=== PATIENT | female | born 1960 | race Caucasian/White ===

== ENCOUNTER 2016-04-22 21:09 | Inpatient (IN) ==
[2016-04-22] MEDS ORDERED: ACETAMINOPHEN 325 MG TABLET PO PRN (21:16)
[2016-04-22] MEDS ORDERED: MAGNESIUM HYDROXIDE 30 ML ORAL.SUSP PO PRN (21:16)
[2016-04-22] MEDS ORDERED: CALCIUM CARBONATE 500 MG TAB.CHEW CHEWED PRN (21:16)
[2016-04-22] MEDS ORDERED: DEXTROSE 50% 50 ML VIAL IV PRN (21:16)
[2016-04-22] MEDS ORDERED: DOCUSATE SODIUM 100 MG CAPSULE PO PRN (21:16)
[2016-04-22] MEDS ORDERED: HYDROCODONE/APAP 7.5/325MG TABLET PO PRN (21:29)
--- NOTE | 2016-04-22 21:36 | Internal Med History&Physical ---
Medical - H&P: HPI Patient information: Note initiated : 04/22/16 at 9:33 pm Service Date, if different from initiated Date: [] Patient: Nalini Coto 55 y/o F admitted on for Cough. Chief Complaint: [] History of present illness: Ms. Coto is a 55 year old female History of present illness: Ms. Coto is a 55 year old female presented to [facility] ER this evening complaining of increasing shortness of breath. ER evaluation there showed that she had a room air O2 saturations in the 70s. She was treated withIV steroids and nebulizer treatments, and has improved somewhat, but still has O2 saturations in the 80s on room air. [facility] felt that she should stay for inpatient treatment, as she was not adequately improved to return home, but they do not have any beds. They called and asked to transfer the patient here. the patient reports that she's had increasing shortness of breath for the last several days. She has felt feverish and chilled. Her has had a cold recently. She also has a headache, mainly over her right eye. She did experience dry heaves this morning. She does have a cough productive of yellowish to clear phlegm. Sore throat, significant eye or ear symptoms. She is not had chest pain although she says her chest may be a little tight with her breathing, but she has been having some aching in her back, which she blames on the coughing. She has had increased wheezing. She has home nebulizedbronchodilators, but they have not been helping. She normally wears2- 3 L of oxygen at night with her CPAP, but does not generally require oxygen during the day. She has had some mild diarrhea lately. Otherwise, she is not had abdominal pain or rectal bleeding or dysuria. past medical history: COPD and asthma obstructive sleep apnea, on CPAP and 2-3 L of oxygen at night Depression Type 2 diabetes, generally well controlled Gout, one episode history of MN reportedly several times, with up to 13 stents Morbid obesity for about 20 years. History of tobacco abuse, having just quit last year. Past surgical history includes heart surgery, and surgery for carpal tunnel syndrome and . Current medications: humalog sliding scale with meals [id number] units daily at bedtime nitroglycerin 0.4 mg when necessary Vitamin B12 1000 milligrams every month Methocarbamol 750 mg 3 times a day when necessary Tramadol 50 mg wice a day when necessary Trazodone 50 mg daily at bedtime Pramipexole 1 mg aily at bedtime Sertraline 200 mg daily at bedtime Bumex 1 mg times a day Plavix 75 mg daily Coreg 3.125 mg by mouth twice a day Aspirin 81 mg daily oxygen, 2-3 L at at bedtime CPAP set at 8, daily at bedtime Allergies: Gabapentin Lyrica Lipitor Keflex-- May have caused throat swelling Erythromycin -- causes flushing Wellbutrin Morphine Shrimp Tape family history: Mother has a history of cancer and diabetes. A sibling also has diabetes and renal disease. Social history; History of drug use. patient smoked from the age of 17 until55, and then quit. She does not use drugs or alcohol. She is and lives with her . Medical - H&P: Meds Home Medications Medication Instructions Recorded Confirmed Type Aspirin [Lo-Dose Aspirin EC] 81 mg PO HS 12/10/15 03/05/16 History Bumetanide 4 mg PO QDAY 12/10/15 03/05/16 History Carvedilol [Coreg] 3.125 mg PO BID 12/10/15 03/07/16 History Clopidogrel [Plavix] 75 mg PO DAILY 12/10/15 03/05/16 History Cyanocobalamin (Vitamin B-12) 1,000 mcg IJ MONTHLY 12/10/15 03/05/16 History [B-12 Compliance] Insulin Glargine, Human [Lantus] 50 unit SQ HS 12/10/15 03/05/16 History Insulin Lispro [HumaLOG] 1 unit SQ .COMPLEX 12/10/15 03/05/16 History Methocarbamol [Robaxin-750] 750 mg PO QIDP PRN 12/10/15 03/05/16 History Nitroglycerin [Nitrostat] 0.4 mg SL Q5M PRN 12/10/15 03/05/16 History Pramipexole [Mirapex] 1 mg PO DAILY 12/10/15 03/05/16 History Sertraline [Zoloft] 100 mg PO BID 12/10/15 03/05/16 History traMADol [Ultram] 50 mg PO BID PRN 12/10/15 03/05/16 History traZODone HCL [Trazodone HCl] 50 mg PO DAILY 12/10/15 03/05/16 History Spironolactone [Aldactone] 25 mg PO QDAY 03/05/16 03/05/16 History Allergies Allergy/AdvReac Type Severity Reaction Status Date / Time atorvastatin [From Lipitor] Allergy Severe Muscle Pain Verified 12/10/15 13:22 cephalexin [From Keflex] Allergy Severe Anaphylaxis Verified 12/10/15 13:22 Ensiklp-Lph-Fve Reductase Allergy Severe Muscle Pain Verified 12/10/15 13:22 Inhibitor Erythromycin Base Allergy Intermediate Flushing Verified 12/10/15 13:22 bupropion [From Wellbutrin] AdvReac Severe Confusion Verified 12/10/15 13:22 pregabalin [From Lyrica] AdvReac Severe Confusion Verified 12/10/15 13:22 gabapentin AdvReac Intermediate Gastrointestinal Verified 12/10/15 13:22 Upset morphine AdvReac Intermediate Insomnia Verified 12/10/15 13:22 Medical - H&P: Exam - Constitutional Exam: vital signs: Blood pressure 134/78 heart rate 81, O2 saturation 90% on 5 L mask , temperature 98.2, respiratory rate 32 The patient is a morbidly old obese white female, who is mildly dyspneic but able to speak in complete sentences. Head: Normocephalic, atraumatic. Ears: TMs and canals are clear. Eyes: PERRLA, EOMI, anicteric. Pharynx: Is markedly crowded. Upper jaw is edentulous with just a few teeth noted on the lower jaw. She says she does have a denture at home. Neck: Has a very large circumference. There is no obvious JVD, lymphadenopathy , thyromegaly, bruits. Cardiac exam: Shows regular rate and rhythm, without obvious murmurs, rubs, gallops, although heart sounds are distant. Lung exam:Shows diffuseand loud expiratory wheezing throughout all lung schaefer. There is some sensory muscle use.I:E ratio is prolonged at 1:3. Abdomen: Is markedly protuberant, but soft and nontender. Bowel sounds are active. Extremities: Show minimal edema, and no cyanosis or clubbing. Neurologic exam: Patient is alert and oriented, calm and cooperative. Motor exam is grossly nonfocal. Skin exam: Brief exam did not show any rashes or worrisome skin lesions. Medical - H&P: Reslt - Labs Labs: results from [facility] emergency room:Weight is 248 pounds, with a BMI of 48 Patient has not received a flu shot this yearand she cannot recall her last Pneumovax--[facility] record indicates this was given in July 2012.. CBC shows a white blood cell count of 5000 hemoglobin 15, hematocrit 47, platelets 182,000, absolute granulocyte count is 4000, lymphocyte count is 800 which is low venous blood gas shows a pH of 7.37, PCO2 of 55, PO2 of 39, bicarbonate of 31 O2 saturation of 67% PO2 of 39 Chemistry panel shows sodium 138, potassium 3.6, chloride 94, CO2 29 calcium 8.6 , albumin 3.9 LFTs are essentially normal Lactic acid is normal at 1.5 Influenza A and B screens are negative I do not see an EKG or chest x-ray report and the paperwork sent from [facility]. I also do not see screening troponin, BNP, or d-dimer. Medical - H&P: A/P - Narrative A/P Narrative: Medical - H&P: A/P (1) COPD with exacerbation Status: Acute (2) Asthma exacerbation in COPD Status: Acute (3) CHF (congestive heart failure) Status: Acute (4) HTN (hypertension) Status: Acute (5) DM type 2 (diabetes mellitus, type 2) Status: Acute (6) STEVEN (obstructive sleep apnea) Status: Acute (7) Gout Status: Acute (8) CAD (coronary artery disease) Status: Acute - Narrative A/P Narrative: #1. Pulmonary. this patient presents with hypoxia, and apparent COPD exacerbation, likely due to a superimposed viral infection.. She will be admitted for aggressive management with nebulized bronchodilators, IV steroids, oxygen and pulmonary toilet. There is no current sign of pneumonia (the ER M.D. he reported a negative chest x-ray). -check screening troponin, BNP, d-dimer. #2. Type 2 diabetes. Continue Lantus and Humalog sliding scale, and Accu-Cheks. #3. Cardiac. reported history of previous MN, and numerous stents.. -Continue Plavix, aspirin, when necessary nitroglycerin. review EKG when available. -Continue Aldactone, when necessary nitroglycerin, Coreg, and Bumex.. #4. CODE STATUS:full code. #5. DVT prophylaxis: continue Plavix and aspirin, add SCDs. #6.sleep apnea. the patient's will try to bring in her CPAP machine so we can resume that at bedtime. #7. History of depression. ontinue trazodone, Zoloft. #8. Chronic pain. Continue when necessary tramadol and [place].and when necessary methocarbamol. #9. Restless leg syndrome. Continue Mirapex. #10. B12 deficiency. Continue monthly B12 injections. this visit took [id number] minutes, to review the patient's records both from here and from [facility], interview and examine her, and write orders.
[2016-04-22] MEDS ORDERED: CARVEDILOL 3.125 MG TABLET PO ONE (23:25)
[2016-04-22] MEDS ORDERED: INSULIN GLARGINE, HUMAN 1 UNIT/0.01 ML SQ ONE ×2 (23:27→23:55)
[2016-04-22] MEDS ORDERED: PRAMIPEXOLE 1 MG TABLET PO ONE (23:27)
[2016-04-22] MEDS: traZODone HCL 50 MG TABLET PO PRN (23:45)
[2016-04-22] MEDS: traMADol 50 MG TABLET PO PRN (23:45)
[2016-04-22] MEDS: ONDANSETRON ODT 4 MG TABLET SL PRN (23:45)
[2016-04-22] MEDS: methylPREDNISolone SOD SUCC 125 MG/2 ML VIAL IV SCH (23:46)
[2016-04-22] MEDS: 0.9 % SODIUM CHLORIDE 10 ML SYRINGE IV SCH (23:46)
[2016-04-22] MEDS ORDERED: CARVEDILOL 6.25 MG TABLET ONE (23:51)
[2016-04-23] MEDS: IPRATROPIUM/ALBUTEROL 3 ML AMPUL.NEB NEB SCH ×4 (02:26→19:03)
[2016-04-23] MEDS: methylPREDNISolone SOD SUCC 125 MG/2 ML VIAL IV SCH ×3 (05:08→21:00)
[2016-04-23] MEDS: 0.9 % SODIUM CHLORIDE 10 ML SYRINGE IV SCH ×3 (05:09→21:00)
[2016-04-23 06:52] LABS: Basophils # (Auto) 0 K/mcL (0.0-0.3); Basophils % (Auto) 0.1 % (0.0-2.0); Eosinophils # (Auto) 0 K/mcL (0.0-0.7); Eosinophils % (Auto) 0.8 % (0.0-7.0); Lymphocytes # (Auto) 0.5 K/mcL (1.5-4.8); Lymphocytes % (Auto) 10.7 % (15.5-49.0); Mean Cell Volume 94.6 fL (80.0-100.0); Mean Corpuscular HGB Conc 31.9 g/dL (31.0-36.0); Mean Corpuscular Hemoglobin 30.2 pg (26.0-34.0); Monocytes # (Auto) 0.1 K/mcL (0.1-0.9); Monocytes % (Auto) 2.4 % (1.0-9.0); Platelet Count 160 K/mcL (140-440); RBC 4.94 M/mcL (4.00-5.20); Red Cell Distribution Width 15.4 % (11.5-14.5)
[2016-04-23 07:02] LABS: ALT/SGPT 26 U/l (0-40); Albumin 3.7 gm/dL (3.2-5.2); Albumin/Globulin Ratio 1.1 (1.0-2.3); Alkaline Phosphatase 74 U/L (39-117); Blood Urea Nitrogen 13 mg/dl (6-20)
[2016-04-23] MEDS: INSULIN LISPRO 1 UNIT/0.01 ML UNIT SQ SCH ×3 (07:16→17:15)
[2016-04-23] MEDS: ONDANSETRON ODT 4 MG TABLET SL PRN ×2 (07:51→18:22)
[2016-04-23] MEDS ORDERED: CARVEDILOL 3.125 MG TABLET PO SCH (08:00)
[2016-04-23] MEDS ORDERED: FLU VACC QS2016-17 36MOS UP/PF 60 MCG/0.5 ML SYRINGE IM ONE (09:00)
[2016-04-23] MEDS: ASPIRIN 81 MG TAB.CHEW CHEWED SCH (09:36)
[2016-04-23] MEDS: CLOPIDOGREL 75 MG TABLET PO SCH (09:36)
[2016-04-23] MEDS ORDERED: NITROGLYCERIN 0.4 MG TAB.SUBL SL PRN (09:43)
--- NOTE | 2016-04-23 09:57 | Internal Med Progress Note ---
Medical - PN: Subj Patient information: Note initiated : 04/23/16 at 9:57 am Service Date, if different from initiated Date: [] Patient: Nalini Coto 55 y/o F admitted on 04/22/16 for Cough. Chief Complaint: [] Interval history: April 22, 2016:History of present illness: Ms. Coto is a 55 year old female presented to [facility] ER this evening complaining of increasing shortness of breath. ER evaluation there showed that she had a room air O2 saturations in the 70s. She was treated withIV steroids and nebulizer treatments, and has improved somewhat, but still has O2 saturations in the 80s on room air. [facility] felt that she should stay for inpatient treatment, as she was not adequately improved to return home, but they do not have any beds. They called and asked to transfer the patient here. the patient reports that she's had increasing shortness of breath for the last several days. She has felt feverish and chilled. Her has had a cold recently. She also has a headache, mainly over her right eye. She did experience dry heaves this morning. She does have a cough productive of yellowish to clear phlegm. Sore throat, significant eye or ear symptoms. She is not had chest pain although she says her chest may be a little tight with her breathing, but she has been having some aching in her back, which she blames on the coughing. She has had increased wheezing. She has home nebulizedbronchodilators, but they have not been helping. She normally wears2- 3 L of oxygen at night with her CPAP, but does not generally require oxygen during the day. She has had some mild diarrhea lately. Otherwise, she is not had abdominal pain or rectal bleeding or dysuria. april 23, 2016: Today, the patientnotes she is still having a fair amount of wheezing and shortness of breath, but think she is much improved since last night. he is not noticing subjective fever or chills this morning. She is still having some nausea, but no vomiting. she otherwise denies current headache sore throat She does continue to have a cough which is mostly nonproductive. She denies abdominal pain or diarrhea or dysuria. her did bring in her nasal CPAP last night, so she still has that on. O2 saturation at 4 this morning was 88%on 5 L O2 via nasal cannula, and went up to 90% on 5 L with her nasal CPAP - Constitutional Vitals: Vital Signs Temp Pulse Resp BP Pulse Ox 97.6 F 76 16 110/64 93 04/23/16 07:20 04/23/16 07:22 04/23/16 07:22 04/23/16 07:20 04/23/16 07:22 Period Temp Pulse Resp BP Sys/Rodriguez Pulse Ox Last 24 Hr 97.6 F-98.5 F 69-96 16-32 110-134/64-80 88-93 Intake and Output 04/22/16 04/23/16 04/23/16 21:59 05:59 13:59 Intake Total 480 / 480 360 / 360 Output Total 300 / 300 Balance 180 / 180 360 / 360 Weight 243 lb 11.2 oz Intake & Output: Intake & Output 04/22/16 04/23/16 04/23/16 21:59 05:59 13:59 Intake Total 480 / 480 360 / 360 Output Total 300 / 300 Balance 180 / 180 360 / 360 Weight 243 lb 11.2 oz Intake: Oral 480 / 480 360 / 360 Output: Void Amount 300 / 300 Other: Meal Breakfast Percent of Meal Consumed 100% Feeding Ability Independent Exam: on exam, she is lying on her side with her CPAP on. She is awake and alert and oriented. Neck shows no obvious JVD. Cardiac exam shows distant heart sounds, with regular rate and rhythm. Lungs:Still showed diffuse soft wheezes, but certainly much softer than last night, and she seems to have better air movement today. Abdomen is obese and protuberant, but otherwise nontender. Extremities: Show just a trace edema. Medical - PN: Obj Da - Labs CBC & Chem 7: 04/23/16 05:02 04/23/16 05:02 Labs: Abnormal Lab Results 04/23/16 04/23/16 04/22/16 05:02 05:02 22:55 RDW 15.4 H Gran % 86.0 H Lymph % (Auto) 10.7 L Lymph # 0.5 L D-Dimer Chloride 93 L Glucose 229 H NT-Pro-B Natriuret Pep 2636.0 H 04/22/16 22:55 RDW Gran % Lymph % (Auto) Lymph # D-Dimer 0.47 H Chloride Glucose NT-Pro-B Natriuret Pep april 22, 2016: d-dimer is mildly elevated at 0.47. troponin is normal at less than 0.01. BNP is elevated at 2636 results from [facility] emergency room:Weight is 248 pounds, with a BMI of 48 Patient has not received a flu shot this yearand she cannot recall her last Pneumovax--[facility] record indicates this was given in July 2012.. CBC shows a white blood cell count of 5000 hemoglobin 15, hematocrit 47, platelets 182,000, absolute granulocyte count is 4000, lymphocyte count is 800 which is low venous blood gas shows a pH of 7.37, PCO2 of 55, PO2 of 39, bicarbonate of 31 O2 saturation of 67% PO2 of 39 Chemistry panel shows sodium 138, potassium 3.6, chloride 94, CO2 29 calcium 8.6 , albumin 3.9 LFTs are essentially normal Lactic acid is normal at 1.5 Influenza A and B screens are negative Meds: Medications Acetaminophen (Tylenol) 650 mg PO Q6HP PRN PRN Reason: PAIN/FEVER > 101 Acetaminophen/Hydrocodone Bitart ([place] 7.5/325mg) 1 tab PO Q4HP PRN PRN Reason: Pain Albuterol Sulfate (Ventolin) 2.5 mg NEB Q2HP PRN PRN Reason: Shortness Of Breath Albuterol/Ipratropium (Duoneb) 3 ml NEB Q6HRT [facility] Last Admin: 04/23/16 06:55 Dose: 3 ml Aspirin (Aspirin) 81 mg CHEWED DAILY [facility] Last Admin: 04/23/16 09:36 Dose: 81 mg Bumetanide (Bumex) 1 mg PO QIDP [facility] Calcium Carbonate/Glycine (Tums) 1,000 mg CHEWED Q4HP PRN PRN Reason: Dyspepsia Carvedilol (Coreg) 3.125 mg PO BIDCC [facility] Last Admin: 04/23/16 07:51 Dose: 3.125 mg Clopidogrel Bisulfate (Plavix) 75 mg PO DAILY [facility] Last Admin: 04/23/16 09:36 Dose: 75 mg Dextrose (Dextrose 50%) 0 ml IV UD PRN PRN Reason: Hypoglycemia Diagnostic Test (Pha) (Accu-Chek) 1 each FS ACHS [facility] Last Admin: 04/23/16 07:16 Dose: 1 each Docusate Sodium (Colace) 100 mg PO BID PRN PRN Reason: Constipation Insulin Human Lispro (Humalog) 0 unit SQ ACHS [facility] PRN Reason: Protocol Last Admin: 04/23/16 07:16 Dose: 4 unit Magnesium Hydroxide (Milk Of Magnesia) 30 ml PO DAILYP PRN PRN Reason: Constipation Methocarbamol (Robaxin (Pp)) 750 mg PO Q6 PRN PRN Reason: Muscle Pain Methylprednisolone Sodium Succinate (Solu-Medrol) 80 mg IV Q8 [facility] Last Admin: 04/23/16 05:08 Dose: 80 mg Nitroglycerin (Nitrostat) 0.4 mg SL Q5M PRN PRN Reason: Chest Pain Non-Formulary Medication (Cyanocobalamin (Vitamin B-12) [B-12 Compliance]) 1, 000 mcg IJ MONTHLY [facility] Ondansetron HCl (Zofran) 4 mg SL Q6HP PRN PRN Reason: Nausea And Vomiting Last Admin: 04/23/16 07:51 Dose: 4 mg Pneumococcal Polyvalent Vaccine (Pneumovax 23) 0.5 ml IM .ONCE ONE Stop: 04/23/16 10:01 Pramipexole Dihydrochloride (Mirapex) 1 mg PO DAILY [facility] Sertraline HCl (Zoloft) 200 mg PO QHS [facility] Sodium Chloride (Saline Flush) 10 ml IV Q8 [facility] Last Admin: 04/23/16 05:09 Dose: 10 ml Tramadol HCl (Ultram) 50 mg PO BIDP PRN PRN Reason: Pain Last Admin: 04/22/16 23:45 Dose: 50 mg Trazodone HCl (Desyrel) 50 mg PO HSP PRN PRN Reason: Insomnia Last Admin: 04/22/16 23:45 Dose: 50 mg Medical - PN: A/P - Time Spent With Patient Total time spent is greater than 50% in coordination of care (as documented) at patient's floor/unit and/or counseling patient: - Narrative A/P Narrative: #1. Pulmonary. this patient presents with hypoxia, and apparent COPD exacerbation, likely due to a superimposed viral infection.. She will be admitted for aggressive management with nebulized bronchodilators, IV steroids, oxygen and pulmonary toilet. There is no current sign of pneumonia (the ER M.D. he reported a negative chest x-ray). -the patient does have an abnormal BNP and d-dimer but clinically is improving with treatment for COPD exacerbation, so I think we will continue with the same. I will check a follow-up chest x-ray today. -I will also request records from her primary care physician and architectural drafting instructor to see about her history of coronary disease and possible congestive heart failure. #2. Type 2 diabetes. - Continue Lantus and Humalog sliding scale, and Accu-Cheks. glucose is running a bit high, likely related to acute illness and steroids. #3. Cardiac. reported history of previous TN, and numerous stents.. -Continue Plavix, aspirin, when necessary nitroglycerin. review EKG when available. -Continue Aldactone, when necessary nitroglycerin, Coreg, and Bumex.. -patient has a pacemaker/defibrillator in place. Report from Dr. Self's office from October 2015 did shownonsustained V. tach of about 9 seconds back in May. EKG showed old inferior and anterolateral TN. #4. CODE STATUS:full code. #5. DVT prophylaxis: continue Plavix and aspirin, add SCDs. #6.sleep apnea. continue nighttime nasal CPAP with supplemental oxygen. #7. History of depression. -Continue trazodone, Zoloft. #8. Chronic pain. Continue when necessary tramadol and [place].and when necessary methocarbamol. #9. Restless leg syndrome. Continue Mirapex. #10. B12 deficiency. Continue monthly B12 injections. approximately 25 minutes has been spent so far today, reviewing test results, interviewing and examining the patient, and writing orders. I will also try to review old records later today. Medical - PN: Qual - Stroke Symptom Onset Unknown: No - VTE Deep Vein Thrombosis/Pulmonary Embolism Present on Admission: No
[2016-04-23] MEDS ORDERED: PNEUMOCOCCAL 23-VAL P-SAC VAC 0.5 ML VIAL IM ONE (10:00)
[2016-04-23] MEDS ORDERED: METHOCARBAMOL 750 MG TABLET PO PRN (10:10)
[2016-04-23] MEDS: BUMETANIDE 1 MG TABLET PO SCH (11:30)
--- NOTE | 2016-04-23 12:04 | XRay Report ---
CLINICAL INFORMATION: Wheezing. Hypoxia. Coronary artery disease. TECHNIQUE: Upright PA and lateral chest x-ray COMPARISON: Previous chest x-rays dated 08/17/2011, 01/25/2009, 01/23/2009 FINDINGS: Interval placement of left transvenous pacemaker with lead in appropriate position for right ventricle. Elevated right diaphragm hemidiaphragm consistent with eventration. Findings are stable. There is cardiomegaly. Pulmonary vascularity is prominent with upper lobe redistribution. Findings are consistent with pulmonary congestion. No pulmonary edema. No focal pulmonary parenchymal infiltrate or mass. No pleural fluid. IMPRESSION: 1. Mild cardiomegaly. 2. Prominent vascularity consistent with pulmonary congestion. 3. No pulmonary edema. No focal pulmonary parenchymal infiltrate. Interpreted and Authenticated by: Jose M Dixon 04/23/16
[2016-04-23] MEDS: CARVEDILOL 3.125 MG TABLET PO SCH (21:00)
[2016-04-23] MEDS ORDERED: SERTRALINE 50 MG TABLET PO SCH (21:00)
[2016-04-23] MEDS: traMADol 50 MG TABLET PO PRN (21:28)
[2016-04-23] MEDS: traZODone HCL 50 MG TABLET PO PRN (21:29)
[2016-04-23] MEDS ORDERED: INSULIN GLARGINE, HUMAN 1 UNIT/0.01 ML SQ ONE (22:20)
[2016-04-24] MEDS: BUMETANIDE 1 MG TABLET PO SCH ×3 (00:31→21:55)
[2016-04-24] MEDS: IPRATROPIUM/ALBUTEROL 3 ML AMPUL.NEB NEB SCH ×4 (00:55→19:45)
[2016-04-24] MEDS: INSULIN LISPRO 1 UNIT/0.01 ML UNIT SQ SCH ×5 (00:55→21:37)
[2016-04-24] MEDS: methylPREDNISolone SOD SUCC 125 MG/2 ML VIAL IV SCH ×3 (06:34→21:55)
[2016-04-24] MEDS: 0.9 % SODIUM CHLORIDE 10 ML SYRINGE IV SCH ×3 (06:34→22:00)
[2016-04-24 07:04] LABS: Basophils # (Auto) 0 K/mcL (0.0-0.3); Basophils % (Auto) 0.2 % (0.0-2.0); Eosinophils # (Auto) 0 K/mcL (0.0-0.7); Eosinophils % (Auto) 0 % (0.0-7.0); Lymphocytes # (Auto) 0.4 K/mcL (1.5-4.8); Lymphocytes % (Auto) 5.2 % (15.5-49.0); Mean Cell Volume 96.7 fL (80.0-100.0); Mean Corpuscular HGB Conc 31.6 g/dL (31.0-36.0); Mean Corpuscular Hemoglobin 30.6 pg (26.0-34.0); Monocytes # (Auto) 0.4 K/mcL (0.1-0.9); Monocytes % (Auto) 4.6 % (1.0-9.0); Platelet Count 182 K/mcL (140-440); RBC 4.85 M/mcL (4.00-5.20); Red Cell Distribution Width 15.7 % (11.5-14.5)
[2016-04-24 07:41] LABS: ALT/SGPT 39 U/l (0-40); Albumin 4.1 gm/dL (3.2-5.2); Albumin/Globulin Ratio 1.4 (1.0-2.3); Alkaline Phosphatase 73 U/L (39-117); Blood Urea Nitrogen 21 mg/dl (6-20)
[2016-04-24] MEDS: CLOPIDOGREL 75 MG TABLET PO SCH (08:59)
[2016-04-24] MEDS: CARVEDILOL 3.125 MG TABLET PO SCH (08:59)
[2016-04-24] MEDS: ASPIRIN 81 MG TAB.CHEW CHEWED SCH (08:59)
[2016-04-24] MEDS ORDERED: NON FORMULARY MEDICATION 1 DOSE MISCELL (Cyanocobalamin (Vitamin B-12) [B-12 Compliance] 1 IJ SCH (09:00)
[2016-04-24] MEDS ORDERED: PRAMIPEXOLE 0.25 MG TABLET PO SCH ×2 (09:00→21:00)
[2016-04-24] MEDS: ONDANSETRON ODT 4 MG TABLET SL PRN (09:23)
[2016-04-24] MEDS: ALBUTEROL SULFATE 2.5 MG/3 ML NEBULIZER NEB PRN ×2 (09:36→16:43)
--- NOTE | 2016-04-24 11:05 | Internal Med Progress Note ---
Medical - PN: Subj Patient information: Note initiated : 04/24/16 at 11:05 am Service Date, if different from initiated Date: [] Patient: Nalini Coto 55 y/o F admitted on 04/22/16 for Cough/SOB, Hypoxia, COPD Exacerbation. Chief Complaint: [] Interval history: April 22, 2016:History of present illness: Ms. Coto is a 55 year old female presented to [facility] ER this evening complaining of increasing shortness of breath. ER evaluation there showed that she had a room air O2 saturations in the 70s. She was treated withIV steroids and nebulizer treatments, and has improved somewhat, but still has O2 saturations in the 80s on room air. [facility] felt that she should stay for inpatient treatment, as she was not adequately improved to return home, but they do not have any beds. They called and asked to transfer the patient here. the patient reports that she's had increasing shortness of breath for the last several days. She has felt feverish and chilled. Her has had a cold recently. She also has a headache, mainly over her right eye. She did experience dry heaves this morning. She does have a cough productive of yellowish to clear phlegm. Sore throat, significant eye or ear symptoms. She is not had chest pain although she says her chest may be a little tight with her breathing, but she has been having some aching in her back, which she blames on the coughing. She has had increased wheezing. She has home nebulizedbronchodilators, but they have not been helping. She normally wears2- 3 L of oxygen at night with her CPAP, but does not generally require oxygen during the day. She has had some mild diarrhea lately. Otherwise, she is not had abdominal pain or rectal bleeding or dysuria. april 23, 2016: Today, the patientnotes she is still having a fair amount of wheezing and shortness of breath, but think she is much improved since last night. he is not noticing subjective fever or chills this morning. She is still having some nausea, but no vomiting. she otherwise denies current headache sore throat She does continue to have a cough which is mostly nonproductive. She denies abdominal pain or diarrhea or dysuria. her did bring in her nasal CPAP last night, so she still has that on. O2 saturation at 4 this morning was 88%on 5 L O2 via nasal cannula, and went up to 90% on 5 L with her nasal CPAP April 24, 2016: today, the patient says she is not feeling that great. She and her know that if she gets out of bed and walks around all she desaturates. Normally at home she stays above 90% on room air during the daybut is desaturating even on 2 and 3 L of oxygen here. She says she just feels poorly, although her main complaints are that she has a pain above her right eye and some dizziness She is not experiencing fever or chills or significant cough She continues to feel moderately short of breath, but is not having as much wheezing. She denies chest pain or palpitations, abdominal pain , vomiting or diarrhea. She does continue to have some intermittent nausea. She denies dysuria. - Constitutional Vitals: Vital Signs Temp Pulse Resp BP Pulse Ox 96.6 F L 62 11 L 119/69 95 04/24/16 06:45 04/24/16 09:38 04/24/16 09:38 04/24/16 06:45 04/24/16 09:42 Period Temp Pulse Resp BP Sys/Rodriguez Pulse Ox Last 24 Hr 96.5 F-98.1 F 62-80 11-32 110-131/58-74 88-96 Intake and Output 04/23/16 04/24/16 04/24/16 21:59 05:59 13:59 Intake Total 540 / 540 715 / 715 Output Total 1601 / 1601 550 / 550 800 / 800 Balance -1061 / -1061 165 / 165 -800 / -800 Weight 244 lb 3.2 oz Intake & Output: Intake & Output 04/23/16 04/24/16 04/24/16 21:59 05:59 13:59 Intake Total 540 / 540 715 / 715 Output Total 1601 / 1601 550 / 550 800 / 800 Balance -1061 / -1061 165 / 165 -800 / -800 Weight 244 lb 3.2 oz Intake: Oral 540 / 540 715 / 715 Output: Void Amount 1600 / 1600 550 / 550 800 / 800 # of times incontinent of 1 / 1 urine Other: Meal Dinner Percent of Meal Consumed 100% Feeding Ability Independent Exam: On exam, she is lying on her side, and seems rather sleepy. She also seems a bit irritable. She does have her nasal CPAP in place. neck shows no obvious JVD. Cardiac exam shows regular rate and rhythm, but heart sounds are distant. Lungs: Much improved breath sounds, and minimal wheezing today. Abdomen:Is obese, but soft and nontender. Extremities: Show no significant edema. Medical - PN: Obj Da - Labs CBC & Chem 7: 04/24/16 05:20 04/24/16 05:20 Labs: Abnormal Lab Results 04/24/16 04/24/16 04/23/16 05:20 05:20 05:02 RDW 15.7 H 15.4 H Gran % 90.0 H 86.0 H Lymph % (Auto) 5.2 L 10.7 L Lymph # 0.4 L 0.5 L D-Dimer Chloride 94 L Carbon Dioxide 31 H BUN 21 H Glucose 188 H Calcium 8.5 L AST 43 H NT-Pro-B Natriuret Pep 04/23/16 04/22/16 04/22/16 05:02 22:55 22:55 RDW Gran % Lymph % (Auto) Lymph # D-Dimer 0.47 H Chloride 93 L Carbon Dioxide BUN Glucose 229 H Calcium AST NT-Pro-B Natriuret Pep 2636.0 H April 24: 02 saturations are ranging from 88-95% on 5 L O2, both with and without CPAP. April 23:Chest x-ray showed interval placement of left transvenous pacemaker, elevated right hemidiaphragm, cardiomegaly, prominent pulmonaryvasculature with upper lobe redistribution. No pulmonary infiltrates. april 22, 2016: d-dimer is mildly elevated at 0.47. troponin is normal at less than 0.01. BNP is elevated at 2636 results from [facility] emergency room:Weight is 248 pounds, with a BMI of 48 Patient has not received a flu shot this year and she cannot recall her last Pneumovax--[place]'s record indicates this was given in July 2012.. CBC shows a white blood cell count of 5000 hemoglobin 15, hematocrit 47, platelets 182,000, absolute granulocyte count is 4000, lymphocyte count is 800 which is low venous blood gas shows a pH of 7.37, PCO2 of 55, PO2 of 39, bicarbonate of 31 O2 saturation of 67% PO2 of 39 Chemistry panel shows sodium 138, potassium 3.6, chloride 94, CO2 29 calcium 8.6 , albumin 3.9 LFTs are essentially normal Lactic acid is normal at 1.5 Influenza A and B screens are negative echocardiogram from December 2014: Showed AICD placement, ejection fraction 34%, . stents 2 in the LAD,stents 2 in the LAD and obtuse marginal Meds: Medications Acetaminophen (Tylenol) 650 mg PO Q6HP PRN PRN Reason: PAIN/FEVER > 101 Last Admin: 04/23/16 21:50 Dose: 650 mg Acetaminophen/Hydrocodone Bitart ([place] 7.5/325mg) 1 tab PO Q4HP PRN PRN Reason: Pain Albuterol Sulfate (Ventolin) 2.5 mg NEB Q2HP PRN PRN Reason: Shortness Of Breath Last Admin: 04/24/16 09:36 Dose: 2.5 mg Albuterol/Ipratropium (Duoneb) 3 ml NEB Q6HRT [facility] Last Admin: 04/24/16 06:52 Dose: 3 ml Aspirin (Aspirin) 81 mg CHEWED DAILY [facility] Last Admin: 04/24/16 08:59 Dose: 81 mg Bumetanide (Bumex) 2 mg PO BID [facility] Last Admin: 04/24/16 08:59 Dose: 2 mg Calcium Carbonate/Glycine (Tums) 1,000 mg CHEWED Q4HP PRN PRN Reason: Dyspepsia Carvedilol (Coreg) 3.125 mg PO BID [facility] Last Admin: 04/24/16 08:59 Dose: 3.125 mg Clopidogrel Bisulfate (Plavix) 75 mg PO DAILY [facility] Last Admin: 04/24/16 08:59 Dose: 75 mg Dextrose (Dextrose 50%) 0 ml IV UD PRN PRN Reason: Hypoglycemia Diagnostic Test (Pha) (Accu-Chek) 1 each FS ACHS [facility] Last Admin: 04/24/16 07:02 Dose: 1 each Docusate Sodium (Colace) 100 mg PO BID PRN PRN Reason: Constipation Insulin Glargine (Lantus) 50 unit SQ HS [facility] Last Admin: 04/23/16 22:12 Dose: 50 unit Insulin Human Lispro (Humalog) 0 unit SQ ACHS [facility] PRN Reason: Protocol Last Admin: 04/24/16 07:04 Dose: 4 unit Magnesium Hydroxide (Milk Of Magnesia) 30 ml PO DAILYP PRN PRN Reason: Constipation Methocarbamol (Robaxin) 750 mg PO Q6HP PRN PRN Reason: Muscle Pain Methylprednisolone Sodium Succinate (Solu-Medrol) 80 mg IV Q8 [facility] Last Admin: 04/24/16 06:34 Dose: 80 mg Nitroglycerin (Nitrostat) 0.4 mg SL Q5M PRN PRN Reason: Chest Pain Ondansetron HCl (Zofran) 4 mg SL Q6HP PRN PRN Reason: Nausea And Vomiting Last Admin: 04/24/16 09:23 Dose: 4 mg Pramipexole Dihydrochloride (Mirapex) 1 mg PO DAILY [facility] Last Admin: 04/23/16 22:00 Dose: 1 mg Sertraline HCl (Zoloft) 200 mg PO HS [facility] Last Admin: 04/23/16 21:00 Dose: 200 mg Sodium Chloride (Saline Flush) 10 ml IV Q8 [facility] Last Admin: 04/24/16 06:34 Dose: 10 ml Tramadol HCl (Ultram) 50 mg PO BIDP PRN PRN Reason: Pain Last Admin: 04/23/16 21:28 Dose: 50 mg Trazodone HCl (Desyrel) 50 mg PO HSP PRN PRN Reason: Insomnia Last Admin: 04/23/16 21:29 Dose: 50 mg Medical - PN: A/P - Time Spent With Patient Total time spent is greater than 50% in coordination of care (as documented) at patient's floor/unit and/or counseling patient: - Narrative A/P Narrative: #1. Pulmonary. this patient presents with hypoxia, and apparent COPD exacerbation, likely due to a superimposed viral infection.. She will be admitted for aggressive management with nebulized bronchodilators, IV steroids, oxygen and pulmonary toilet. There is no current sign of pneumonia (the ER M.D. he reported a negative chest x-ray). -the patient does have an abnormal BNP and d-dimer but clinically Patient seemed to improve initially with COPD treatment. Today she looks less well, so I may try diuresing her a bit to see if that is helpful. if not, I might consider a CT angiogram to rule out underlying PE. #2. Type 2 diabetes. - Continue Lantus and Humalog sliding scale, and Accu-Cheks. glucose is running a bit high, likely related to acute illness and steroids. #3. Cardiac. reported history of previous DE, and numerous stents.. -Continue Plavix, aspirin, when necessary nitroglycerin. review EKG when available. -Continue Aldactone, when necessary nitroglycerin, Coreg, and Bumex.. -patient has a pacemaker/defibrillator in place. Report from Dr. Self's office from October 2015 did show nonsustained V. tach of about 9 seconds back in May. EKG showed old inferior and anterolateral DE. #4. CODE STATUS:full code. #5. DVT prophylaxis: continue Plavix and aspirin, add SCDs. #6.sleep apnea. continue nighttime nasal CPAP with supplemental oxygen. #7. History of depression. -Continue trazodone, Zoloft. #8. Chronic pain. Continue when necessary tramadol and [place].and when necessary methocarbamol. #9. Restless leg syndrome. Continue Mirapex. #10. B12 deficiency. Continue monthly B12 injections. #11. Hematologic. Patient also is lymphopenic.absolute lymphocyte count was 1500 last November, and has been declining steadily since then. if this trend does not improve, it might be worthwhile doing an HIV screen. this could also just be evidence of recurrent respiratory virus infection as well. So far today, this is his second approximately 30 minutes, to interview and examine the patient, review test results, review her previous echo, and write orders. addendum: this evening, the patient became progressively more dyspneic, and her O2 saturations started to drop down into the 60s. Her FiO2 was increased, and this helped temporarily. The patient was complaining mainly of sinus congestion and nasal congestion as well as pain above her right eye. She was continuing to try to use the nasal CPAP, but was doing a lot of mouth breathing. I ultimately decided to move her to the intensive care unit for further monitoring. Since we were concerned about the possibility of congestive heart failure earlier today, she was given IV Lasix, with a good response to that. ABG indicated continued CO2 retention and hypoxemia Because of her sinus issues , we stopped her nasal CPAP, and switch her over to BiPAP. Since then, she has been doing quite well. Her O2 requirements have dropped dramatically, and she has appeared to be quite a bit more comfortable. because of a likely sinus infection, I will add antibiotics as well. ABG on her nasal CPAP at 10 L: Showed pH of 7.42, PCO2 of 67, PO2 of 54, O2 saturation of 88%, bicarbonate of 43 EKG showed sinus rhythm at a rate of 80 with old inferior and lateral infarcts. Without obvious acute ischemic changes. follow-up chest x-rayshows no pulmonary edema or infiltrates. troponin is negative at less than 0.01. BNP is abnormal at 2098 This extra visit took approximately an additional 30 minutes this evening, to evaluate her, and visit with her several times while we sorted things out. Medical - PN: Qual - Stroke Symptom Onset Unknown: No - VTE Deep Vein Thrombosis/Pulmonary Embolism Present on Admission: No
[2016-04-24] MEDS ORDERED: FUROSEMIDE 100 MG/10 ML VIAL IV ONE (12:26)
[2016-04-24] MEDS ORDERED: METHOCARBAMOL 750 MG TABLET PO PRN (18:47)
[2016-04-24] MEDS ORDERED: MAGNESIUM HYDROXIDE 30 ML ORAL.SUSP PO PRN (18:47)
[2016-04-24] MEDS ORDERED: CALCIUM CARBONATE 500 MG TAB.CHEW CHEWED PRN (18:47)
[2016-04-24] MEDS ORDERED: DOCUSATE SODIUM 100 MG CAPSULE PO PRN (18:47)
[2016-04-24] MEDS ORDERED: ALBUTEROL SULFATE 2.5 MG/3 ML NEBULIZER NEB PRN (18:47)
[2016-04-24] MEDS ORDERED: ONDANSETRON ODT 4 MG TABLET SL PRN (18:47)
[2016-04-24] MEDS ORDERED: ACETAMINOPHEN 325 MG TABLET PO PRN (18:47)
[2016-04-24] MEDS ORDERED: DEXTROSE 50% 50 ML VIAL IV PRN (18:47)
[2016-04-24] MEDS ORDERED: HYDROCODONE/APAP 7.5/325MG TABLET PO PRN (18:47)
[2016-04-24] MEDS ORDERED: NITROGLYCERIN 0.4 MG TAB.SUBL SL PRN (18:47)
[2016-04-24] MEDS ORDERED: NITROGLYCERIN 1 GM OINT.TOP TD ONE (18:47)
--- NOTE | 2016-04-24 19:28 | XRay Report ---
CLINICAL INFORMATION: Hypoxia TECHNIQUE: AP upright portable chest x-ray COMPARISON: Previous chest x-rays dated 04/23/2016 and 08/17/2011 FINDINGS: No change in left transvenous pacemaker lead. Persistent elevation right hemidiaphragm There is cardiomegaly. Pulmonary vascularity is within normal limits. No pulmonary edema. No focal pulmonary parenchymal infiltrate or mass. No significant interval change in velocities are made for differences in technique. IMPRESSION: 1. Cardiomegaly. 2. No acute or focal parenchymal infiltrate. No congestive heart failure. Interpreted and Authenticated by: Jose M Dixon 04/24/16
[2016-04-24] MEDS ORDERED: INSULIN GLARGINE, HUMAN 1 UNIT/0.01 ML SQ SCH (21:00)
[2016-04-24] MEDS: INSULIN GLARGINE, HUMAN 1 UNIT/0.01 ML SQ SCH (21:37)
[2016-04-24] MEDS: SERTRALINE 50 MG TABLET PO SCH (21:53)
[2016-04-24] MEDS ORDERED: PIPERACILLIN SODIUM/TAZOBACTAM 3.375 GM VIAL IV ONE (21:56)
[2016-04-24] MEDS: PIPERACILLIN SODIUM/TAZOBACTAM 3.375 GM in DEXTROSE 5% IN WATER 50 ML IV SCH (21:56)
[2016-04-24] MEDS: PRAMIPEXOLE 0.25 MG TABLET PO SCH (21:57)
[2016-04-24] MEDS: traMADol 50 MG TABLET PO PRN (22:21)
[2016-04-24] MEDS: traZODone HCL 50 MG TABLET PO PRN (22:21)
[2016-04-25] MEDS: IPRATROPIUM/ALBUTEROL 3 ML AMPUL.NEB NEB SCH ×4 (01:24→19:10)
[2016-04-25] MEDS: PIPERACILLIN SODIUM/TAZOBACTAM 3.375 GM in DEXTROSE 5% IN WATER 50 ML IV SCH ×3 (05:22→20:37)
[2016-04-25] MEDS: methylPREDNISolone SOD SUCC 125 MG/2 ML VIAL IV SCH ×3 (05:22→20:37)
[2016-04-25] MEDS: 0.9 % SODIUM CHLORIDE 10 ML SYRINGE IV SCH ×2 (05:22→15:15)
[2016-04-25] MEDS ORDERED: PIPERACILLIN SODIUM/TAZOBACTAM 3.375 GM VIAL IV ONE ×2 (05:23→20:30)
[2016-04-25 07:11] LABS: Basophils # (Auto) 0 K/mcL (0.0-0.3); Basophils % (Auto) 0 % (0.0-2.0); Eosinophils # (Auto) 0 K/mcL (0.0-0.7); Eosinophils % (Auto) 0 % (0.0-7.0); Lymphocytes # (Auto) 0.5 K/mcL (1.5-4.8); Mean Cell Volume 95.5 fL (80.0-100.0); Mean Corpuscular Hemoglobin 30.6 pg (26.0-34.0); Monocytes # (Auto) 0.6 K/mcL (0.1-0.9); Platelet Count 172 K/mcL (140-440); RBC 4.77 M/mcL (4.00-5.20); Red Cell Distribution Width 15.4 % (11.5-14.5)
[2016-04-25 08:48] LABS: ALT/SGPT 45 U/l (0-40); Albumin 3.9 gm/dL (3.2-5.2); Albumin/Globulin Ratio 1.1 (1.0-2.3); Alkaline Phosphatase 69 U/L (39-117); Bilirubin,Direct < 0.2 mg/dL (0.0-0.3); Blood Urea Nitrogen 20 mg/dl (6-20); Gamma Glutamyl Transpeptidase 23 U/L (5-36); Phosphorous 3.7 mg/dL (2.7-4.5); Uric Acid 6.2 mg/dL (2.5-8.0)
[2016-04-25] MEDS: CARVEDILOL 3.125 MG TABLET PO SCH ×2 (09:00→20:48)
[2016-04-25] MEDS: CLOPIDOGREL 75 MG TABLET PO SCH (09:00)
[2016-04-25] MEDS: ASPIRIN 81 MG TAB.CHEW CHEWED SCH (09:00)
[2016-04-25] MEDS: BUMETANIDE 1 MG TABLET PO SCH ×2 (09:01→20:40)
[2016-04-25] MEDS: INSULIN LISPRO 1 UNIT/0.01 ML UNIT SQ SCH ×4 (09:02→20:44)
[2016-04-25] MEDS ORDERED: FLU VACC QS2016-17 36MOS UP/PF 60 MCG/0.5 ML SYRINGE IM ONE (10:00)
--- NOTE | 2016-04-25 11:32 | Internal Med Progress Note ---
Medical - PN: Subj Patient information: Note initiated : 04/25/16 at 11:32 am Service Date, if different from initiated Date: [] Patient: Nalini Coto 55 y/o F admitted on 04/22/16 for Cough/SOB, Hypoxia, COPD Exacerbation. Chief Complaint: [] Interval history: April 22, 2016:History of present illness: Ms. Coto is a 55 year old female presented to [facility] ER this evening complaining of increasing shortness of breath. ER evaluation there showed that she had a room air O2 saturations in the 70s. She was treated withIV steroids and nebulizer treatments, and has improved somewhat, but still has O2 saturations in the 80s on room air. [facility] felt that she should stay for inpatient treatment, as she was not adequately improved to return home, but they do not have any beds. They called and asked to transfer the patient here. the patient reports that she's had increasing shortness of breath for the last several days. She has felt feverish and chilled. Her has had a cold recently. She also has a headache, mainly over her right eye. She did experience dry heaves this morning. She does have a cough productive of yellowish to clear phlegm. Sore throat, significant eye or ear symptoms. She is not had chest pain although she says her chest may be a little tight with her breathing, but she has been having some aching in her back, which she blames on the coughing. She has had increased wheezing. She has home nebulizedbronchodilators, but they have not been helping. She normally wears2- 3 L of oxygen at night with her CPAP, but does not generally require oxygen during the day. She has had some mild diarrhea lately. Otherwise, she is not had abdominal pain or rectal bleeding or dysuria. april 23, 2016: Today, the patientnotes she is still having a fair amount of wheezing and shortness of breath, but think she is much improved since last night. he is not noticing subjective fever or chills this morning. She is still having some nausea, but no vomiting. she otherwise denies current headache sore throat She does continue to have a cough which is mostly nonproductive. She denies abdominal pain or diarrhea or dysuria. her did bring in her nasal CPAP last night, so she still has that on. O2 saturation at 4 this morning was 88%on 5 L O2 via nasal cannula, and went up to 90% on 5 L with her nasal CPAP April 24, 2016: today, the patient says she is not feeling that great. She and her know that if she gets out of bed and walks around all she desaturates. Normally at home she stays above 90% on room air during the daybut is desaturating even on 2 and 3 L of oxygen here. She says she just feels poorly, although her main complaints are that she has a pain above her right eye and some dizziness She is not experiencing fever or chills or significant cough She continues to feel moderately short of breath, but is not having as much wheezing. She denies chest pain or palpitations, abdominal pain , vomiting or diarrhea. She does continue to have some intermittent nausea. She denies dysuria. addendum: this evening, the patient became progressively more dyspneic, and her O2 saturations started to drop down into the 60s. Her FiO2 was increased, and this helped temporarily. The patient was complaining mainly of sinus congestion and nasal congestion as well as pain above her right eye. She was continuing to try to use the nasal CPAP, but was doing a lot of mouth breathing. I ultimately decided to move her to the intensive care unit for further monitoring. Since we were concerned about the possibility of congestive heart failure earlier today, she was given IV Lasix, with a good response to that. ABG indicated continued CO2 retention and hypoxemia Because of her sinus issues , we stopped her nasal CPAP, and switch her over to BiPAP. Since then, she has been doing quite well. Her O2 requirements have dropped dramatically, and she has appeared to be quite a bit more comfortable. because of a likely sinus infection, I will add antibiotics as well. April 25, 2016:: today, the patient is much more comfortable, although she did not sleep well last night. She complains of significant fatigue. She is finding it easier to breathe with the BiPAP mask, then using her nasal CPAP, due to her sinus congestion. she was awake earlier, and able to take off the masks to eat, but now has the mask back on, and is sleeping soundly. her is with her, and says overall he thinks she feels a little better today. She is not complaining of chest pain, and feels that the mask actually helps her breathe better than when it is not on. - Constitutional Vitals: Vital Signs Temp Pulse Resp BP Pulse Ox 98.9 F 69 17 121/89 93 04/25/16 04:00 04/25/16 11:26 04/25/16 11:26 04/25/16 10:00 04/25/16 11:26 Period Temp Pulse Resp BP Sys/Rodriguez Pulse Ox Last 24 Hr 96.6 F-98.9 F 65-82 15-32 111-140/70-102 73-98 Intake and Output 04/24/16 04/25/16 04/25/16 21:59 05:59 13:59 Intake Total 120 / 120 550 / 550 170 / 170 Output Total 875 / 875 2150 / 2150 Balance -755 / -755 -1600 / -1600 170 / 170 Weight 241 lb 11.2 oz Intake & Output: Intake & Output 04/24/16 04/25/16 04/25/16 21:59 05:59 13:59 Intake Total 120 / 120 550 / 550 170 / 170 Output Total 875 / 875 2150 / 2150 Balance -755 / -755 -1600 / -1600 170 / 170 Weight 241 lb 11.2 oz Intake: IV 50 / 50 50 / 50 Dextrose 5% in Water 50 50 / 50 50 / 50 ml @ 100 mls/hr IV Q8H MARIAM with Zosyn 3.375 gm Rx#:[id number] Oral 120 / 120 500 / 500 120 / 120 Output: Urine Catheter Amount 875 / 875 2150 / 2150 Other: Meal Breakfast Percent of Meal Consumed 100% Exam: on exam, initially this a.m. she was awake and talking. She is quite sleepy currently. She has not received anything to make her sleepy this morning. Neck appears supple without obvious lymphadenopathy or JVD. Cardiac exam shows regular rate and rhythm. Lung exam show soft expiratory wheezes throughout, with generally decreased breath sounds throughout. Abdomen is soft without obvious tenderness. Bowel sounds are active. Extremities show no significant edema. Medical - PN: Obj Da - Labs CBC & Chem 7: 04/25/16 04:30 04/25/16 07:25 Labs: Abnormal Lab Results 04/25/16 04/25/16 04/24/16 07:25 04:30 19:00 RDW 15.4 H Gran % 87.0 H Lymph % (Auto) 6.0 L Lymph # 0.5 L D-Dimer Chloride 92 L Carbon Dioxide 41 H* BUN Glucose 173 H Calcium 8.1 L AST 40 H ALT 45 H NT-Pro-B Natriuret Pep 2098.0 H Triglycerides 176 H 04/24/16 04/24/16 04/23/16 05:20 05:20 05:02 RDW 15.7 H 15.4 H Gran % 90.0 H 86.0 H Lymph % (Auto) 5.2 L 10.7 L Lymph # 0.4 L 0.5 L D-Dimer Chloride 94 L Carbon Dioxide 31 H BUN 21 H Glucose 188 H Calcium 8.5 L AST 43 H ALT NT-Pro-B Natriuret Pep Triglycerides 04/23/16 04/22/16 04/22/16 05:02 22:55 22:55 RDW Gran % Lymph % (Auto) Lymph # D-Dimer 0.47 H Chloride 93 L Carbon Dioxide BUN Glucose 229 H Calcium AST ALT NT-Pro-B Natriuret Pep 2636.0 H Triglycerides March 26: 02 saturations are ranging from 88-95% on 5 L O2, both with and without CPAP. sputum culture is growing a gram-negative bacillus, with ID pending. ABG on BiPAP, settings of 15/8, FiO2 35%: Shows pH of 7.41, PCO2 75, PO2 86, bicarbonate 47, 95% saturated EKGshowed sinus rhythmwith low voltage, old inferolateral AR. No acute changes. portable chest x-ray showed cardiomegaly, but no obvious pulmonary edema or infiltrates. April 23:Chest x-ray showed interval placement of left transvenous pacemaker, elevated right hemidiaphragm, cardiomegaly, prominent pulmonaryvasculature with upper lobe redistribution. No pulmonary infiltrates. april 22, 2016: d-dimer is mildly elevated at 0.47. troponin is normal at less than 0.01. BNP is elevated at 2636 results from [facility] emergency room:Weight is 248 pounds, with a BMI of 48 Patient has not received a flu shot this year and she cannot recall her last Pneumovax--[facility]'s record indicates this was given in July 2012.. CBC shows a white blood cell count of 5000 hemoglobin 15, hematocrit 47, platelets 182,000, absolute granulocyte count is 4000, lymphocyte count is 800 which is low venous blood gas shows a pH of 7.37, PCO2 of 55, PO2 of 39, bicarbonate of 31 O2 saturation of 67% PO2 of 39 Chemistry panel shows sodium 138, potassium 3.6, chloride 94, CO2 29 calcium 8.6 , albumin 3.9 LFTs are essentially normal Lactic acid is normal at 1.5 Influenza A and B screens are negative echocardiogram from December 2014: Showed AICD placement, ejection fraction 34%, . stents 2 in the LAD,stents 2 in the LAD and obtuse marginal Meds: Medications Acetaminophen (Tylenol) 650 mg PO Q6HP PRN PRN Reason: PAIN/FEVER > 101 Acetaminophen/Hydrocodone Bitart ([place] 7.5/325mg) 1 tab PO Q4HP PRN PRN Reason: Pain Albuterol Sulfate (Ventolin) 2.5 mg NEB Q2HP PRN PRN Reason: Shortness Of Breath Last Admin: 04/24/16 16:50 Dose: 2.5 mg Albuterol/Ipratropium (Duoneb) 3 ml NEB Q6HRT [facility] Last Admin: 04/25/16 07:25 Dose: 3 ml Aspirin (Aspirin) 81 mg CHEWED DAILY [facility] Last Admin: 04/25/16 09:00 Dose: 81 mg Bumetanide (Bumex) 2 mg PO BID [facility] Last Admin: 04/25/16 09:01 Dose: 2 mg Calcium Carbonate/Glycine (Tums) 1,000 mg CHEWED Q4HP PRN PRN Reason: Dyspepsia Carvedilol (Coreg) 3.125 mg PO BIDCC [facility] Last Admin: 04/25/16 09:00 Dose: 3.125 mg Clopidogrel Bisulfate (Plavix) 75 mg PO DAILY [facility] Last Admin: 04/25/16 09:00 Dose: 75 mg Dextrose (Dextrose 50%) 0 ml IV UD PRN PRN Reason: Hypoglycemia Diagnostic Test (Pha) (Accu-Chek) 1 each FS ACHS [facility] Last Admin: 04/25/16 07:45 Dose: 1 each Docusate Sodium (Colace) 100 mg PO BID PRN PRN Reason: Constipation Piperacillin Sod/Tazobactam (Sod 3.375 gm/ Dextrose) 50 mls @ 100 mls/hr IV Q8H [facility] Last Infusion: 04/25/16 06:15 Dose: Infused Insulin Glargine (Lantus) 50 unit SQ [facility] Last Admin: 04/24/16 21:37 Dose: Not Given Insulin Human Lispro (Humalog) 0 unit SQ [facility] PRN Reason: Protocol Last Admin: 04/25/16 09:02 Dose: 2 unit Magnesium Hydroxide (Milk Of Magnesia) 30 ml PO DAILYP PRN PRN Reason: Constipation Methocarbamol (Robaxin) 750 mg PO Q6HP PRN PRN Reason: Muscle Pain Methylprednisolone Sodium Succinate (Solu-Medrol) 80 mg IV Q8 [facility] Last Admin: 04/25/16 05:22 Dose: 80 mg Nitroglycerin (Nitrostat) 0.4 mg SL Q5M PRN PRN Reason: Chest Pain Ondansetron HCl (Zofran Odt) 4 mg SL Q6HP PRN PRN Reason: Nausea And Vomiting Pramipexole Dihydrochloride (Mirapex) 1 mg PO [facility] Last Admin: 04/24/16 21:57 Dose: 1 mg Sertraline HCl (Zoloft) 200 mg PO [facility] Last Admin: 04/24/16 21:53 Dose: 200 mg Sodium Chloride (Saline Flush) 10 ml IV Q8 [facility] Last Admin: 04/25/16 05:22 Dose: 10 ml Tramadol HCl (Ultram) 50 mg PO BIDP PRN PRN Reason: Pain Last Admin: 04/24/16 22:21 Dose: 50 mg Trazodone HCl (Desyrel) 50 mg PO HSP PRN PRN Reason: Insomnia Last Admin: 04/24/16 22:21 Dose: 50 mg Medical - PN: A/P - Time Spent With Patient Total time spent is greater than 50% in coordination of care (as documented) at patient's floor/unit and/or counseling patient: 25 - 35 minutes - Narrative A/P Narrative: #1. Pulmonary. this patient presents with hypoxia, and apparent COPD exacerbation, likely due to a superimposed viral infection.. She was admitted for aggressive management with nebulized bronchodilators, IV steroids, oxygen and pulmonary toilet. There is no current sign of pneumonia (the ER M.D. he reported a negative chest x-ray). -she had an episode yesterday where her O2 saturations Dropping. It ultimately appeared that she was having difficulty breathing through her nose, and therefore her nasal CPAP was not working. She had a lot of nasal congestion and other symptoms of a sinus infection. She was switched over to the BiPAP mask, and is much more comfortable now, and is maintaining her saturations much better. Unfortunately, on her blood gas, she is retaining CO2. Hopefully that is more of an acute issue. -She was started on Zosyn to cover her sinus infection. Her sputum today is growing gram-negative rods, with ID pending. We will continue with bronchodilators and oxygen and pulmonary toilet as needed. She was moved to the ICU last night for close monitoring. #2. Type 2 diabetes. - Continue Lantus and Humalog sliding scale, and Accu-Cheks. glucose is running a bit high, likely related to acute illness and steroids. #3. Cardiac. reported history of previous AR, and numerous stents.. -she was given Lasix yesterday, and K she had a component of pulmonary vascular congestion. She did diurese quite a bit. -Continue Plavix, aspirin, when necessary nitroglycerin. review EKG when available. -Continue Aldactone, when necessary nitroglycerin, Coreg, and Bumex.. -patient has a pacemaker/defibrillator in place. Report from Dr. Self's office from October 2015 did show nonsustained V. tach of about 9 seconds back in May. EKG showed old inferior and anterolateral AR. #4. CODE STATUS:full code. #5. DVT prophylaxis: continue Plavix and aspirin, add SCDs. #6.sleep apnea. continue biPAP for now with supplemental oxygen. #7. History of depression. -Continue trazodone, Zoloft. #8. Chronic pain. Continue when necessary tramadol and [place].and when necessary methocarbamol. #9. Restless leg syndrome. Continue Mirapex. #10. B12 deficiency. Continue monthly B12 injections. #11. Hematologic. Patient also is lymphopenic.absolute lymphocyte count was 1500 last November, and has been declining steadily since then. if this trend does not improve, it might be worthwhile doing an HIV screen. this could also just be evidence of recurrent respiratory virus infection as well. So far today, this visit today has taken approximately 30 minutes, to interview and examine the patient, review test results, , and write orders. Medical - PN: Qual - Stroke Symptom Onset Unknown: No - VTE Deep Vein Thrombosis/Pulmonary Embolism Present on Admission: No
[2016-04-25] MEDS ORDERED: ONDANSETRON 4 MG/2 ML VIAL IV PRN (16:25)
[2016-04-25] MEDS: traMADol 50 MG TABLET PO PRN (20:38)
[2016-04-25] MEDS: traZODone HCL 50 MG TABLET PO PRN (20:39)
[2016-04-25] MEDS: PRAMIPEXOLE 0.25 MG TABLET PO SCH (20:41)
[2016-04-25] MEDS: SERTRALINE 50 MG TABLET PO SCH (20:42)
[2016-04-25] MEDS: INSULIN GLARGINE, HUMAN 1 UNIT/0.01 ML SQ SCH (20:43)
[2016-04-26] MEDS: 0.9 % SODIUM CHLORIDE 10 ML SYRINGE IV SCH ×4 (01:22→21:51)
[2016-04-26] MEDS: IPRATROPIUM/ALBUTEROL 3 ML AMPUL.NEB NEB SCH ×4 (01:29→20:15)
[2016-04-26] MEDS: PIPERACILLIN SODIUM/TAZOBACTAM 3.375 GM in DEXTROSE 5% IN WATER 50 ML IV SCH ×3 (05:44→21:51)
[2016-04-26] MEDS: methylPREDNISolone SOD SUCC 125 MG/2 ML VIAL IV SCH ×3 (05:45→21:51)
[2016-04-26 06:53] LABS: Basophils # (Auto) 0 K/mcL (0.0-0.3); Basophils % (Auto) 0 % (0.0-2.0); Eosinophils # (Auto) 0 K/mcL (0.0-0.7); Eosinophils % (Auto) 0.5 % (0.0-7.0); Granulocytes % (Auto) 80.4 % (38.0-78.0); Lymphocytes # (Auto) 0.8 K/mcL (1.5-4.8); Mean Cell Volume 95.6 fL (80.0-100.0); Mean Corpuscular HGB Conc 31.8 g/dL (31.0-36.0); Mean Corpuscular Hemoglobin 30.4 pg (26.0-34.0); Monocytes # (Auto) 0.7 K/mcL (0.1-0.9); Monocytes % (Auto) 9.1 % (1.0-9.0); Platelet Count 175 K/mcL (140-440); RBC 4.94 M/mcL (4.00-5.20); Red Cell Distribution Width 15.1 % (11.5-14.5)
[2016-04-26] MEDS ORDERED: POTASSIUM CHLORIDE 20 MEQ TABLET PO ONE (07:00)
[2016-04-26 07:22] LABS: ALT/SGPT 35 U/l (0-40); Albumin 3.7 gm/dL (3.2-5.2); Albumin/Globulin Ratio 1.5 (1.0-2.3); Alkaline Phosphatase 65 U/L (39-117); Bilirubin,Direct < 0.2 mg/dL (0.0-0.3); Blood Urea Nitrogen 26 mg/dl (6-20); Gamma Glutamyl Transpeptidase 21 U/L (5-36); Phosphorous 2.8 mg/dL (2.7-4.5); Uric Acid 5.7 mg/dL (2.5-8.0)
[2016-04-26] MEDS: ASPIRIN 81 MG TAB.CHEW CHEWED SCH (09:05)
[2016-04-26] MEDS: CARVEDILOL 3.125 MG TABLET PO SCH ×2 (09:05→18:46)
[2016-04-26] MEDS: CLOPIDOGREL 75 MG TABLET PO SCH (09:05)
[2016-04-26] MEDS: INSULIN LISPRO 1 UNIT/0.01 ML UNIT SQ SCH ×4 (09:06→21:09)
[2016-04-26] MEDS: BUMETANIDE 1 MG TABLET PO SCH ×2 (09:06→21:09)
--- NOTE | 2016-04-26 13:45 | Internal Med Progress Note ---
Medical - PN: Subj Patient information: Note initiated : 04/26/16 at 1:45 pm Service Date, if different from initiated Date: [] Patient: Nalini Coto 55 y/o F admitted on 04/22/16 for Cough/SOB, Hypoxia, COPD Exacerbation. Chief Complaint: [] Interval history: April 22, 2016:History of present illness: Ms. Coto is a 55 year old female presented to [facility] ER this evening complaining of increasing shortness of breath. ER evaluation there showed that she had a room air O2 saturations in the 70s. She was treated withIV steroids and nebulizer treatments, and has improved somewhat, but still has O2 saturations in the 80s on room air. [facility] felt that she should stay for inpatient treatment, as she was not adequately improved to return home, but they do not have any beds. They called and asked to transfer the patient here. the patient reports that she's had increasing shortness of breath for the last several days. She has felt feverish and chilled. Her has had a cold recently. She also has a headache, mainly over her right eye. She did experience dry heaves this morning. She does have a cough productive of yellowish to clear phlegm. Sore throat, significant eye or ear symptoms. She is not had chest pain although she says her chest may be a little tight with her breathing, but she has been having some aching in her back, which she blames on the coughing. She has had increased wheezing. She has home nebulizedbronchodilators, but they have not been helping. She normally wears2- 3 L of oxygen at night with her CPAP, but does not generally require oxygen during the day. She has had some mild diarrhea lately. Otherwise, she is not had abdominal pain or rectal bleeding or dysuria. april 23, 2016: Today, the patientnotes she is still having a fair amount of wheezing and shortness of breath, but think she is much improved since last night. he is not noticing subjective fever or chills this morning. She is still having some nausea, but no vomiting. she otherwise denies current headache sore throat She does continue to have a cough which is mostly nonproductive. She denies abdominal pain or diarrhea or dysuria. her did bring in her nasal CPAP last night, so she still has that on. O2 saturation at 4 this morning was 88%on 5 L O2 via nasal cannula, and went up to 90% on 5 L with her nasal CPAP April 24, 2016: today, the patient says she is not feeling that great. She and her know that if she gets out of bed and walks around all she desaturates. Normally at home she stays above 90% on room air during the daybut is desaturating even on 2 and 3 L of oxygen here. She says she just feels poorly, although her main complaints are that she has a pain above her right eye and some dizziness She is not experiencing fever or chills or significant cough She continues to feel moderately short of breath, but is not having as much wheezing. She denies chest pain or palpitations, abdominal pain , vomiting or diarrhea. She does continue to have some intermittent nausea. She denies dysuria. addendum: this evening, the patient became progressively more dyspneic, and her O2 saturations started to drop down into the 60s. Her FiO2 was increased, and this helped temporarily. The patient was complaining mainly of sinus congestion and nasal congestion as well as pain above her right eye. She was continuing to try to use the nasal CPAP, but was doing a lot of mouth breathing. I ultimately decided to move her to the intensive care unit for further monitoring. Since we were concerned about the possibility of congestive heart failure earlier today, she was given IV Lasix, with a good response to that. ABG indicated continued CO2 retention and hypoxemia Because of her sinus issues , we stopped her nasal CPAP, and switch her over to BiPAP. Since then, she has been doing quite well. Her O2 requirements have dropped dramatically, and she has appeared to be quite a bit more comfortable. because of a likely sinus infection, I will add antibiotics as well. April 25, 2016:: today, the patient is much more comfortable, although she did not sleep well last night. She complains of significant fatigue. She is finding it easier to breathe with the BiPAP mask, then using her nasal CPAP, due to her sinus congestion. she was awake earlier, and able to take off the masks to eat, but now has the mask back on, and is sleeping soundly. her is with her, and says overall he thinks she feels a little better today. She is not complaining of chest pain, and feels that the mask actually helps her breathe better than when it is not on. April 26:the patient apparently had somewhat of a restless night. The nurses tell me that she was awake for about 2 hours this morning, and did well off the BiPAP. She was able to eat breakfast, and seemed to feel pretty well, but then said she was just exhausted, and went back to sleep. she has been maintaining her O2 saturation pretty well while awake today, on O2 via nasal cannula. When she reported her back on the BiPAP as her sinus tenderness still does not allow her to tolerate her nasal CPAP very well.she still feels very weak and very tired. -her nurse tells me that she has been having some intermittent vaginal bleeding , which the patient says is not all that uncommon for her she is not really sure if she has gone through menopause yet. She has not seen a doctor about her irregular vaginal bleeding.Otherwise she denies subjective fever or chills, chest pain or palpitations. She continues to have moderate dyspnea with minimal exertion, and continued wheezing. She denies abdominal pain, nausea or vomiting, diarrhea or dysuria. she had a Cavanaugh catheter placed when she was moved to the ICU. The plan is to remove that once she is able toget up to the bedside commode easily. - Constitutional Vitals: Vital Signs Temp Pulse Resp BP Pulse Ox 97.5 F L 65 20 112/70 94 04/26/16 03:00 04/26/16 13:12 04/26/16 13:12 04/26/16 13:00 04/26/16 13:12 Period Temp Pulse Resp BP Sys/Rodriguez Pulse Ox Last 24 Hr 89.8 F-98.4 F 53-112 14-26 91-144/65-93 89-97 Intake and Output 04/25/16 04/26/16 04/26/16 21:59 05:59 13:59 Intake Total 570 / 570 400 / 400 290 / 290 Output Total 670 / 670 1300 / 1300 1090 / 1090 Balance -100 / -100 -900 / -900 -800 / -800 Weight 242 lb 6 oz Intake & Output: Intake & Output 04/25/16 04/26/16 04/26/16 21:59 05:59 13:59 Intake Total 570 / 570 400 / 400 290 / 290 Output Total 670 / 670 1300 / 1300 1090 / 1090 Balance -100 / -100 -900 / -900 -800 / -800 Weight 242 lb 6 oz Intake: IV 100 / 100 50 / 50 Dextrose 5% in Water 50 100 / 100 50 / 50 ml @ 100 mls/hr IV Q8H MARIAM with Zosyn 3.375 gm Rx#:[id number] Oral 470 / 470 400 / 400 240 / 240 Output: Urine Catheter Amount 670 / 670 1300 / 1300 1090 / 1090 Other: Meal Dinner Breakfast Percent of Meal Consumed 100% 100% Exam: n exam, when I saw her this morning, she was fairly somnolent. She did have a long nap,however, and subsequently woke up and was able to come off of the BiPAP and sit up in a chair for lunch.Neck is supple without obvious lymphadenopathy or JVD. Cardiac exam shows regular rate and rhythm. Lungs: Show improved air movement, but continued soft wheezing throughout. Abdomen: Is obese, but soft and nontender. Extremities: Show minimal edema. Neurologic exam: Is grossly nonfocal Medical - PN: Obj Da - Labs CBC & Chem 7: 04/26/16 04:20 04/26/16 04:20 Labs: Abnormal Lab Results 04/26/16 04/26/16 04/25/16 04:20 04:20 07:25 RDW 15.1 H Gran % 80.4 H Lymph % (Auto) 10.0 L [place] % (Auto) 9.1 H Lymph # 0.8 L Chloride 91 L 92 L Carbon Dioxide 38 H 41 H* BUN 26 H Glucose 256 H 173 H Calcium 7.7 L 8.1 L AST 40 H ALT 45 H NT-Pro-B Natriuret Pep Triglycerides 179 H 176 H 04/25/16 04/24/16 04/24/16 04:30 19:00 05:20 RDW 15.4 H 15.7 H Gran % 87.0 H 90.0 H Lymph % (Auto) 6.0 L 5.2 L [place] % (Auto) Lymph # 0.5 L 0.4 L Chloride Carbon Dioxide BUN Glucose Calcium AST ALT NT-Pro-B Natriuret Pep 2098.0 H Triglycerides 04/24/16 05:20 RDW Gran % Lymph % (Auto) [place] % (Auto) Lymph # Chloride 94 L Carbon Dioxide 31 H BUN 21 H Glucose 188 H Calcium 8.5 L AST 43 H ALT NT-Pro-B Natriuret Pep Triglycerides April 26: aBG on 1 L O2 via nasal cannula, while awake: PH 7.45, CO2 69, PO2 56, bicarbonate 48, O2 saturation 90% April 24: 02 saturations are ranging from 88-95% on 5 L O2, both with and without CPAP. sputum culture is growing a Proteus mirabilis, which is pansensitive. ABG on BiPAP, settings of 15/8, FiO2 35%: Shows pH of 7.41, PCO2 75, PO2 86, bicarbonate 47, 95% saturated EKGshowed sinus rhythmwith low voltage, old inferolateral CT. No acute changes. portable chest x-ray showed cardiomegaly, but no obvious pulmonary edema or infiltrates. April 23:Chest x-ray showed interval placement of left transvenous pacemaker, elevated right hemidiaphragm, cardiomegaly, prominent pulmonaryvasculature with upper lobe redistribution. No pulmonary infiltrates. april 22, 2016: d-dimer is mildly elevated at 0.47. troponin is normal at less than 0.01. BNP is elevated at 2636 results from [facility] emergency room:Weight is 248 pounds, with a BMI of 48 Patient has not received a flu shot this year and she cannot recall her last Pneumovax--[facility]'s record indicates this was given in July 2012.. CBC shows a white blood cell count of 5000 hemoglobin 15, hematocrit 47, platelets 182,000, absolute granulocyte count is 4000, lymphocyte count is 800 which is low venous blood gas shows a pH of 7.37, PCO2 of 55, PO2 of 39, bicarbonate of 31 O2 saturation of 67% PO2 of 39 Chemistry panel shows sodium 138, potassium 3.6, chloride 94, CO2 29 calcium 8.6 , albumin 3.9 LFTs are essentially normal Lactic acid is normal at 1.5 Influenza A and B screens are negative echocardiogram from December 2014: Showed AICD placement, ejection fraction 34%, . stents 2 in the LAD,stents 2 in the LAD and obtuse marginal Meds: Medications Acetaminophen (Tylenol) 650 mg PO Q6HP PRN PRN Reason: PAIN/FEVER > 101 Acetaminophen/Hydrocodone Bitart ([place] 7.5/325mg) 1 tab PO Q4HP PRN PRN Reason: Pain Albuterol Sulfate (Ventolin) 2.5 mg NEB Q2HP PRN PRN Reason: Shortness Of Breath Last Admin: 04/24/16 16:50 Dose: 2.5 mg Albuterol/Ipratropium (Duoneb) 3 ml NEB Q6HRT [facility] Last Admin: 04/26/16 13:09 Dose: 3 ml Aspirin (Aspirin) 81 mg CHEWED DAILY [facility] Last Admin: 04/26/16 09:05 Dose: 81 mg Bumetanide (Bumex) 2 mg PO BID [facility] Last Admin: 04/26/16 09:06 Dose: 2 mg Calcium Carbonate/Glycine (Tums) 1,000 mg CHEWED Q4HP PRN PRN Reason: Dyspepsia [facility] Last Admin: 04/26/16 09:05 Dose: 3.125 mg Clopidogrel Bisulfate (Plavix) 75 mg PO DAILY [facility] Last Admin: 04/26/16 09:05 Dose: 75 mg Dextrose (Dextrose 50%) 0 ml IV UD PRN PRN Reason: Hypoglycemia Diagnostic Test (Pha) (Accu-Chek) 1 each FS ACHS [facility] Last Admin: 04/26/16 12:20 Dose: 1 each Docusate Sodium (Colace) 100 mg PO BID PRN PRN Reason: Constipation Piperacillin Sod/Tazobactam (Sod 3.375 gm/ Dextrose) 50 mls @ 100 mls/hr IV Q8H [facility] Last Infusion: 04/26/16 06:28 Dose: Infused Insulin Glargine (Lantus) 50 unit SQ HS [facility] Last Admin: 04/25/16 20:43 Dose: 50 unit Insulin Human Lispro (Humalog) 0 unit SQ [facility] PRN Reason: Protocol Last Admin: 04/26/16 12:20 Dose: 8 unit Magnesium Hydroxide (Milk Of Magnesia) 30 ml PO DAILYP PRN PRN Reason: Constipation Methocarbamol (Robaxin) 750 mg PO Q6HP PRN PRN Reason: Muscle Pain Methylprednisolone Sodium Succinate (Solu-Medrol) 80 mg IV Q8 [facility] Last Admin: 04/26/16 05:45 Dose: 80 mg Nitroglycerin (Nitrostat) 0.4 mg SL Q5M PRN PRN Reason: Chest Pain Ondansetron HCl (Zofran Odt) 4 mg SL Q6HP PRN PRN Reason: Nausea And Vomiting Ondansetron HCl (Zofran) 4 mg IV Q4-6HP PRN PRN Reason: Nausea And Vomiting Last Admin: 04/25/16 16:43 Dose: 4 mg Pramipexole Dihydrochloride (Mirapex) 1 mg PO HS [facility] Last Admin: 04/25/16 20:41 Dose: 1 mg Sertraline HCl (Zoloft) 200 mg PO HS [facility] Last Admin: 04/25/16 20:42 Dose: 200 mg Sodium Chloride (Saline Flush) 10 ml IV Q8 [facility] Last Admin: 04/26/16 05:45 Dose: 10 ml Tramadol HCl (Ultram) 50 mg PO BIDP PRN PRN Reason: Pain Last Admin: 04/25/16 20:38 Dose: 50 mg Trazodone HCl (Desyrel) 50 mg PO HSP PRN PRN Reason: Insomnia Last Admin: 04/25/16 20:39 Dose: 50 mg Medical - PN: A/P - Time Spent With Patient Total time spent is greater than 50% in coordination of care (as documented) at patient's floor/unit and/or counseling patient: - Narrative A/P Narrative: #1. Pulmonary. this patient presents with hypoxia, and apparent COPD exacerbation, likely due to a superimposed viral infection.. She was admitted for aggressive management with nebulized bronchodilators, IV steroids, oxygen and pulmonary toilet. There is no current sign of pneumonia (the ER M.D. he reported a negative chest x-ray). -he had great difficulty using her nasal CPAP, due to apparent sinus infection with sinus congestion. She has done much better since she was placed on BiPAP. She is doing well today with trials off of the BiPAP while awake. We will continue to use BiPAP while sleeping, to accommodate her sinus tenderness and wean her off O2 while awake, as tolerated. -Her sinus passages continue to feel quite dry. Her brought in a nasal saline spray for her to use when necessary. -She was started on Zosyn to cover her sinus infection. Her sputum Proteus., We will continue with bronchodilators and oxygen and pulmonary toilet as needed. She was moved to the ICU or close monitoring night before last, and is gradually improving. #2. Type 2 diabetes. - Continue Lantus and Humalog sliding scale, and Accu-Cheks. glucose is running a bit high, likely related to acute illness and steroids. #3. Cardiac. reported history of previous CT, and numerous stents.. -she was given Lasix , and K she had a component of pulmonary vascular congestion. She did diurese quite a bit. -Continue Plavix, aspirin, when necessary nitroglycerin. review EKG when available. -Continue Aldactone, when necessary nitroglycerin, Coreg, and Bumex.. -patient has a pacemaker/defibrillator in place. Report from Dr. Self's office from October 2015 did show nonsustained V. tach of about 9 seconds back in May. EKG showed old inferior and anterolateral CT. #4. CODE STATUS:full code. #5. DVT prophylaxis: continue Plavix and aspirin, add SCDs. #6.sleep apnea. continue biPAP for now with supplemental oxygen. #7. History of depression. -Continue trazodone, Zoloft. #8. Chronic pain. Continue when necessary tramadol and [place].and when necessary methocarbamol. #9. Restless leg syndrome. Continue Mirapex. #10. B12 deficiency. Continue monthly B12 injections. #11. Hematologic. Patient also is lymphopenic.absolute lymphocyte count was 1500 last November, and has been declining steadily since then. if this trend does not improve, it might be worthwhile doing an HIV screen. this could also just be evidence of recurrent respiratory virus infection as well. #12. [employer]. the patient reports that she has been having intermittent vaginal bleeding. This may be consistent with her being perimenopausal, but she is unclear on if she is. I strongly encouraged she and her to seek [employer] follow-up for this after discharge from the hospital. So far today, this visit today has taken approximately 30 minutes, to interview and examine the patient, review test results, , and write orders. Medical - PN: Qual - Stroke Symptom Onset Unknown: No - VTE Deep Vein Thrombosis/Pulmonary Embolism Present on Admission: No
[2016-04-26] MEDS: INSULIN GLARGINE, HUMAN 1 UNIT/0.01 ML SQ SCH (21:08)
[2016-04-26] MEDS: PRAMIPEXOLE 0.25 MG TABLET PO SCH (21:09)
[2016-04-26] MEDS: SERTRALINE 50 MG TABLET PO SCH (21:10)
[2016-04-26] MEDS: traMADol 50 MG TABLET PO PRN (21:15)
[2016-04-26] MEDS: traZODone HCL 50 MG TABLET PO PRN (21:16)
[2016-04-27] MEDS: IPRATROPIUM/ALBUTEROL 3 ML AMPUL.NEB NEB SCH ×4 (01:13→18:50)
[2016-04-27] MEDS: PIPERACILLIN SODIUM/TAZOBACTAM 3.375 GM in DEXTROSE 5% IN WATER 50 ML IV SCH ×3 (04:58→21:22)
[2016-04-27] MEDS: 0.9 % SODIUM CHLORIDE 10 ML SYRINGE IV SCH ×3 (05:15→21:23)
[2016-04-27] MEDS: methylPREDNISolone SOD SUCC 125 MG/2 ML VIAL IV SCH ×3 (05:15→21:21)
[2016-04-27 07:14] LABS: Basophils # (Auto) 0 K/mcL (0.0-0.3); Basophils % (Auto) 0.1 % (0.0-2.0); Eosinophils # (Auto) 0 K/mcL (0.0-0.7); Eosinophils % (Auto) 0 % (0.0-7.0); Granulocytes % (Auto) 85.9 % (38.0-78.0); Lymphocytes # (Auto) 0.8 K/mcL (1.5-4.8); Lymphocytes % (Auto) 9.8 % (15.5-49.0); Mean Cell Volume 94.9 fL (80.0-100.0); Mean Corpuscular Hemoglobin 30.4 pg (26.0-34.0); Monocytes # (Auto) 0.3 K/mcL (0.1-0.9); Monocytes % (Auto) 4.2 % (1.0-9.0); Platelet Count 181 K/mcL (140-440); RBC 5.15 M/mcL (4.00-5.20); Red Cell Distribution Width 15.1 % (11.5-14.5)
[2016-04-27 07:31] LABS: ALT/SGPT 26 U/l (0-40); Albumin 3.4 gm/dL (3.2-5.2); Alkaline Phosphatase 61 U/L (39-117); Bilirubin,Direct < 0.2 mg/dL (0.0-0.3); Blood Urea Nitrogen 25 mg/dl (6-20); Gamma Glutamyl Transpeptidase 28 U/L (5-36); Magnesium 2.1 mg/dL (1.6-2.5); Phosphorous 3.6 mg/dL (2.7-4.5); Uric Acid 4.1 mg/dL (2.5-8.0)
[2016-04-27] MEDS: CARVEDILOL 3.125 MG TABLET PO SCH ×2 (08:39→18:26)
[2016-04-27] MEDS: ASPIRIN 81 MG TAB.CHEW CHEWED SCH (08:39)
[2016-04-27] MEDS: INSULIN LISPRO 1 UNIT/0.01 ML UNIT SQ SCH ×4 (08:39→21:12)
[2016-04-27] MEDS: CLOPIDOGREL 75 MG TABLET PO SCH (08:39)
[2016-04-27] MEDS: BUMETANIDE 1 MG TABLET PO SCH ×2 (08:39→21:21)
--- NOTE | 2016-04-27 13:29 | Internal Med Progress Note ---
Medical - PN: Subj Patient information: Note initiated : 04/27/16 at 1:29 pm Service Date, if different from initiated Date: [] Patient: Nalini Coto 55 y/o F admitted on 04/22/16 for Cough/SOB, Hypoxia, COPD Exacerbation. Chief Complaint: [] Interval history: April 22, 2016:History of present illness: Ms. Coto is a 55 year old female presented to [facility] ER this evening complaining of increasing shortness of breath. ER evaluation there showed that she had a room air O2 saturations in the 70s. She was treated withIV steroids and nebulizer treatments, and has improved somewhat, but still has O2 saturations in the 80s on room air. [facility] felt that she should stay for inpatient treatment, as she was not adequately improved to return home, but they do not have any beds. They called and asked to transfer the patient here. the patient reports that she's had increasing shortness of breath for the last several days. She has felt feverish and chilled. Her has had a cold recently. She also has a headache, mainly over her right eye. She did experience dry heaves this morning. She does have a cough productive of yellowish to clear phlegm. Sore throat, significant eye or ear symptoms. She is not had chest pain although she says her chest may be a little tight with her breathing, but she has been having some aching in her back, which she blames on the coughing. She has had increased wheezing. She has home nebulizedbronchodilators, but they have not been helping. She normally wears2- 3 L of oxygen at night with her CPAP, but does not generally require oxygen during the day. She has had some mild diarrhea lately. Otherwise, she is not had abdominal pain or rectal bleeding or dysuria. april 23, 2016: Today, the patientnotes she is still having a fair amount of wheezing and shortness of breath, but think she is much improved since last night. he is not noticing subjective fever or chills this morning. She is still having some nausea, but no vomiting. she otherwise denies current headache sore throat She does continue to have a cough which is mostly nonproductive. She denies abdominal pain or diarrhea or dysuria. her did bring in her nasal CPAP last night, so she still has that on. O2 saturation at 4 this morning was 88%on 5 L O2 via nasal cannula, and went up to 90% on 5 L with her nasal CPAP April 24, 2016: today, the patient says she is not feeling that great. She and her know that if she gets out of bed and walks around all she desaturates. Normally at home she stays above 90% on room air during the daybut is desaturating even on 2 and 3 L of oxygen here. She says she just feels poorly, although her main complaints are that she has a pain above her right eye and some dizziness She is not experiencing fever or chills or significant cough She continues to feel moderately short of breath, but is not having as much wheezing. She denies chest pain or palpitations, abdominal pain , vomiting or diarrhea. She does continue to have some intermittent nausea. She denies dysuria. addendum: this evening, the patient became progressively more dyspneic, and her O2 saturations started to drop down into the 60s. Her FiO2 was increased, and this helped temporarily. The patient was complaining mainly of sinus congestion and nasal congestion as well as pain above her right eye. She was continuing to try to use the nasal CPAP, but was doing a lot of mouth breathing. I ultimately decided to move her to the intensive care unit for further monitoring. Since we were concerned about the possibility of congestive heart failure earlier today, she was given IV Lasix, with a good response to that. ABG indicated continued CO2 retention and hypoxemia Because of her sinus issues , we stopped her nasal CPAP, and switch her over to BiPAP. Since then, she has been doing quite well. Her O2 requirements have dropped dramatically, and she has appeared to be quite a bit more comfortable. because of a likely sinus infection, I will add antibiotics as well. April 25, 2016:: today, the patient is much more comfortable, although she did not sleep well last night. She complains of significant fatigue. She is finding it easier to breathe with the BiPAP mask, then using her nasal CPAP, due to her sinus congestion. she was awake earlier, and able to take off the masks to eat, but now has the mask back on, and is sleeping soundly. her is with her, and says overall he thinks she feels a little better today. She is not complaining of chest pain, and feels that the mask actually helps her breathe better than when it is not on. April 26:the patient apparently had somewhat of a restless night. The nurses tell me that she was awake for about 2 hours this morning, and did well off the BiPAP. She was able to eat breakfast, and seemed to feel pretty well, but then said she was just exhausted, and went back to sleep. she has been maintaining her O2 saturation pretty well while awake today, on O2 via nasal cannula. When she reported her back on the BiPAP as her sinus tenderness still does not allow her to tolerate her nasal CPAP very well.she still feels very weak and very tired. -her nurse tells me that she has been having some intermittent vaginal bleeding , which the patient says is not all that uncommon for her she is not really sure if she has gone through menopause yet. She has not seen a doctor about her irregular vaginal bleeding.Otherwise she denies subjective fever or chills, chest pain or palpitations. She continues to have moderate dyspnea with minimal exertion, and continued wheezing. She denies abdominal pain, nausea or vomiting, diarrhea or dysuria. she had a Cavanaugh catheter placed when she was moved to the ICU. The plan is to remove that once she is able toget up to the bedside commode easily. April 27: his morning, the patient was placed back on oxygen by nasal cannula , and did sit up for breakfast. She still feels terribly weak, but is probably a little better than yesterday. Nursing staff feels that she is able now to get out of bedto use the bedside commode, so we will discontinue her Cavanaugh. Today, I had a discussion with the patient and her . Apparently sometimes the patient will just sit in her chair all day at home, not getting up to use the bathroom or eat anything, because she just feels too weak. She notes she does occasionally have chest pressure at home, and if it lasts more than 10 minutes, she will take a sublingual nitroglycerin, which relieves the pressure. She has been having occasional lower sternal pressure here, but says it does not feel like her normal angina. She does have some occasional nausea here, and the Zofran does help. She says she would like to tryhaving that at home as well. She often will take Pepto-Bismol at home if she has nausea. at home, she does not use oxygen while awake, so her goal is to get back to that state. However she is still extraordinarily weak, and will likely require some physical therapy to try to get her stronger. I did have a long discussion with she and her about aking sure she is moving around as much as she can tolerate. We discussed that the more she moves the stronger she will get, and that will help with her breathing as well. Also building up some muscle mass will help her get rid of some of her body fat, which would then make moving around easier as well. I do think physical therapy should evaluate her for a walker with a seat, so that she will stop using a wheelchair as much to get from place to place. Otherwise, she denies subjective fever or chills, palpitations, abdominal pain, vomiting or diarrhea Only catheter still in place. - Constitutional Vitals: Vital Signs Temp Pulse Resp BP Pulse Ox 97.5 F L 63 20 132/83 92 04/27/16 04:00 04/27/16 13:00 04/27/16 13:00 04/27/16 13:00 04/27/16 13:00 Period Temp Pulse Resp BP Sys/Rodriguez Pulse Ox Last 24 Hr 97.0 F-98.8 F 53-76 10-24 90-143/57-98 89-97 Intake and Output 04/26/16 04/27/16 04/27/16 21:59 05:59 13:59 Intake Total 1470 / 1470 100 / 100 960 / 960 Output Total 640 / 640 2079 / 2079 935 / 935 Balance 830 / 830 -1979 Weight 237 lb 9.6 oz Intake & Output: Intake & Output 04/26/16 04/27/16 04/27/16 21:59 05:59 13:59 Intake Total 1470 / 1470 100 / 100 960 / 960 Output Total 640 / 640 2079 / 2079 935 / 935 Balance 830 / 830 -1979 Weight 237 lb 9.6 oz Intake: IV 50 / 50 100 / 100 Dextrose 5% in Water 50 50 / 50 100 / 100 ml @ 100 mls/hr IV Q8H MARIAM with Zosyn 3.375 gm Rx#:[id number] Oral 1420 / 1420 960 / 960 Output: Urine Catheter Amount 640 / 640 2080 / 2080 935 / 935 Other: Meal Lunch Breakfast Percent of Meal Consumed 100% 100% Feeding Ability Assist with Tray Set Up # Bowel Movements 200 Exam: on exam, she is sitting up in a chair. She's been on for about 2 hours now, and is looking quite fatigued. Neck shows no obvious JVD. Cardiac exam shows regular rate and rhythm. Lung exam shows decreased breath sounds throughout, but not much wheezing today. abdomen: Is very obese, but otherwise soft and nontender. Extremities: Show no significant edema. Neurologic: Is grossly nonfocal. Medical - PN: Obj Da - Labs CBC & Chem 7: 04/27/16 06:34 04/27/16 06:34 Labs: Abnormal Lab Results 04/27/16 04/27/16 04/26/16 06:34 06:34 04:20 Hgb 15.7 H Hct 48.9 H RDW 15.1 H Gran % 85.9 H Lymph % (Auto) 9.8 L Grant % (Auto) Lymph # 0.8 L Chloride 91 L 91 L Carbon Dioxide 41 H* 38 H Anion Gap 7.0 L BUN 25 H 26 H Glucose 188 H 256 H Calcium 8.2 L 7.7 L AST ALT NT-Pro-B Natriuret Pep Triglycerides 179 H 04/26/16 04/25/16 04/25/16 04:20 07:25 04:30 Hgb Hct RDW 15.1 H 15.4 H Gran % 80.4 H 87.0 H Lymph % (Auto) 10.0 L 6.0 L Grant % (Auto) 9.1 H Lymph # 0.8 L 0.5 L Chloride 92 L Carbon Dioxide 41 H* Anion Gap BUN Glucose 173 H Calcium 8.1 L AST 40 H ALT 45 H NT-Pro-B Natriuret Pep Triglycerides 176 H 04/24/16 19:00 Hgb Hct RDW Gran % Lymph % (Auto) Grant % (Auto) Lymph # Chloride Carbon Dioxide Anion Gap BUN Glucose Calcium AST ALT NT-Pro-B Natriuret Pep 2098.0 H Triglycerides April 27: -The patient has diuresed about 8 L of fluid since her arrival.her weight is down about 6 pounds. -accu-Cheks are still running high, ranging from 179-274. April 26: aBG on 1 L O2 via nasal cannula, while awake: PH 7.45, CO2 69, PO2 56, bicarbonate 48, O2 saturation 90% April 24: -02 saturations are ranging from 88-95% on 5 L O2, both with and without CPAP. -sputum culture is growing a Proteus mirabilis, which is pansensitive. -ABG on BiPAP, settings of 15/8, FiO2 35%: Shows pH of 7.41, PCO2 75, PO2 86, bicarbonate 47, 95% saturated -EKGshowed sinus rhythmwith low voltage, old inferolateral CO. No acute changes. -portable chest x-ray showed cardiomegaly, but no obvious pulmonary edema or infiltrates. April 23: -Chest x-ray showed interval placement of left transvenous pacemaker, elevated right hemidiaphragm, cardiomegaly, prominent -pulmonaryvasculature with upper lobe redistribution. No pulmonary infiltrates. april 22, 2016: -d-dimer is mildly elevated at 0.47. troponin is normal at less than 0.01. -BNP is elevated at 2636 -results from [facility] emergency room:Weight is 248 pounds, with a BMI of 48 -Patient has not received a flu shot this year and she cannot recall her last Pneumovax--[facility]'s record indicates this was given in July 2012.. -CBC shows a white blood cell count of 5000 hemoglobin 15, hematocrit 47, platelets 182,000, absolute granulocyte count is 4000, lymphocyte count is 800 which is low -venous blood gas shows a pH of 7.37, PCO2 of 55, PO2 of 39, bicarbonate of 31 O2 saturation of 67% PO2 of 39 -Chemistry panel shows sodium 138, potassium 3.6, chloride 94, CO2 29 calcium 8.6, albumin 3.9 -LFTs are essentially normal -Lactic acid is normal at 1.5 -Influenza A and B screens are negative -echocardiogram from December 2014: Showed AICD placement, ejection fraction 34% ,. -stents 2 in the LAD,stents 2 in the LAD and obtuse marginal Meds: Medications Acetaminophen (Tylenol) 650 mg PO Q6HP PRN PRN Reason: PAIN/FEVER > 101 Acetaminophen/Hydrocodone Bitart (Polk 7.5/325mg) 1 tab PO Q4HP PRN PRN Reason: Pain Albuterol Sulfate (Ventolin) 2.5 mg NEB Q2HP PRN PRN Reason: Shortness Of Breath Last Admin: 04/24/16 16:50 Dose: 2.5 mg Albuterol/Ipratropium (Duoneb) 3 ml NEB Q6HRT [facility] Last Admin: 04/27/16 06:25 Dose: 3 ml Aspirin (Aspirin) 81 mg CHEWED DAILY [facility] Last Admin: 04/27/16 08:39 Dose: 81 mg Bumetanide (Bumex) 2 mg PO BID [facility] Last Admin: 04/27/16 08:39 Dose: 2 mg Calcium Carbonate/Glycine (Tums) 1,000 mg CHEWED Q4HP PRN PRN Reason: Dyspepsia [facility] Last Admin: 04/27/16 08:39 Dose: 3.125 mg Clopidogrel Bisulfate (Plavix) 75 mg PO DAILY [facility] Last Admin: 04/27/16 08:39 Dose: 75 mg Dextrose (Dextrose 50%) 0 ml IV UD PRN PRN Reason: Hypoglycemia Diagnostic Test (Pha) (Accu-Chek) 1 each FS ACHS [facility] Last Admin: 04/27/16 12:55 Dose: 1 each Docusate Sodium (Colace) 100 mg PO BID PRN PRN Reason: Constipation Piperacillin Sod/Tazobactam (Sod 3.375 gm/ Dextrose) 50 mls @ 100 mls/hr IV Q8H [facility] Last Infusion: 04/27/16 05:57 Dose: Infused Insulin Glargine (Lantus) 50 unit SQ HS [facility] Last Admin: 04/26/16 21:08 Dose: 50 unit Insulin Human Lispro (Humalog) 0 unit SQ ACHS [facility] PRN Reason: Protocol Last Admin: 04/27/16 12:54 Dose: 8 unit Magnesium Hydroxide (Milk Of Magnesia) 30 ml PO DAILYP PRN PRN Reason: Constipation Methocarbamol (Robaxin) 750 mg PO Q6HP PRN PRN Reason: Muscle Pain Methylprednisolone Sodium Succinate (Solu-Medrol) 80 mg IV Q8 [facility] Last Admin: 04/27/16 05:15 Dose: 80 mg Nitroglycerin (Nitrostat) 0.4 mg SL Q5M PRN PRN Reason: Chest Pain Ondansetron HCl (Zofran Odt) 4 mg SL Q6HP PRN PRN Reason: Nausea And Vomiting Ondansetron HCl (Zofran) 4 mg IV Q4-6HP PRN PRN Reason: Nausea And Vomiting Last Admin: 04/25/16 16:43 Dose: 4 mg Pramipexole Dihydrochloride (Mirapex) 1 mg PO HS [facility] Last Admin: 04/26/16 21:09 Dose: 1 mg Sertraline HCl (Zoloft) 200 mg PO HS [facility] Last Admin: 04/26/16 21:10 Dose: 200 mg Sodium Chloride (Saline Flush) 10 ml IV Q8 [facility] Last Admin: 04/27/16 05:15 Dose: 10 ml Tramadol HCl (Ultram) 50 mg PO BIDP PRN PRN Reason: Pain Last Admin: 04/26/16 21:15 Dose: 50 mg Trazodone HCl (Desyrel) 50 mg PO HSP PRN PRN Reason: Insomnia Last Admin: 04/26/16 21:16 Dose: 50 mg Medical - PN: A/P - Time Spent With Patient Total time spent is greater than 50% in coordination of care (as documented) at patient's floor/unit and/or counseling patient: - Narrative A/P Narrative: #1. Pulmonary. this patient presents with hypoxia, and apparent COPD exacerbation, likely due to a superimposed viral infection.. She was admitted for aggressive management with nebulized bronchodilators, IV steroids, oxygen and pulmonary toilet. There is no current sign of pneumonia (the ER M.D. he reported a negative chest x-ray). -she had great difficulty using her nasal CPAP, due to apparent sinus infection with sinus congestion. She has done much better since she was placed on BiPAP. She is doing well today with trials off of the BiPAP while awake. We will continue to use BiPAP while sleeping, to accommodate her sinus tenderness and wean her off O2 while awake, as tolerated. -Her sinus passages continue to feel quite dry. Her brought in a nasal saline spray for her to use when necessary. -She was started on Zosyn to cover her sinus infection. Her sputum Proteus., We will continue with bronchodilators and oxygen and pulmonary toilet as needed. i think her symptoms of sinus infection are improving, so she might be ready for a trial back on her nasal CPAP. I will see what RT thinks about that idea. I also asked her to use her nasal saline spray quite often, to promote drainage. #2. Type 2 diabetes. - Continue Lantus and Humalog sliding scale, and Accu-Cheks. glucose is running a bit high, likely related to acute illness and steroids. -increase her Lantus as well as her sliding scale. #3. Cardiac. reported history of previous CO, and numerous stents.. -she was given Lasix , and K she had a component of pulmonary vascular congestion. She did diurese quite a bit. -Continue Plavix, aspirin, when necessary nitroglycerin. review EKG when available. -Continue Aldactone, when necessary nitroglycerin, Coreg, and Bumex.. -patient has a pacemaker/defibrillator in place. Report from Dr. Self's office from October 2015 did show nonsustained V. tach of about 9 seconds back in May. EKG showed old inferior and anterolateral CO. -it sounds like the patient is functionally quite disabled from the combination of her heart and lung disease. i spent some time today encouraging her to work with physical therapy to get on a regular exercise program. She absolutely needs to move around more, so that she can get stronger, so that she can build up her tolerance for activity that stresses both her heart and her lungs. I do think a walker with a seat would help accomplish this, she could start walking more confidently, knowing that she could stop and rest whenever she needs to. #4. CODE STATUS:full code. #5. DVT prophylaxis: continue Plavix and aspirin, add SCDs. #6.sleep apnea. continue biPAP for now with supplemental oxygen. I have asked RT to evaluate whether she might be ready to go back on her nasal CPAP, assuming her sinuses can tolerate that. #7. History of depression. -Continue trazodone, Zoloft. #8. Chronic pain. Continue when necessary tramadol and Polk.and when necessary methocarbamol. #9. Restless leg syndrome. Continue Mirapex. #10. B12 deficiency. Continue monthly B12 injections. #11. Hematologic. Patient also is lymphopenic.absolute lymphocyte count was 1500 last November, and has been declining steadily since then. if this trend does not improve, it might be worthwhile doing an HIV screen. -this is improving over the last 2 days. #12. [facility] [employer]. the patient reports that she has been having intermittent vaginal bleeding. This may be consistent with her being perimenopausal, but she is unclear on if she is. I strongly encouraged she and her to seek [facility] [employer] follow-up for this after discharge from the hospital. #13. Disposition: I discussed possible rehabilitation with the patient and her today. It sounds like she would prefer to return home, and have home health physical therapy She may also need to have a machine deicer element winder who can stop in once or twice a day to help her get to and from her kitchen and her bathroom. At this time she is just too weak to do most activities of daily living on her own. So far today, this visit today has taken approximately 35 minutes, to interview and examine the patient, review test results, , and write orders. Medical - PN: Qual - Stroke Symptom Onset Unknown: No - VTE Deep Vein Thrombosis/Pulmonary Embolism Present on Admission: No
[2016-04-27] MEDS ORDERED: DEXTROSE 50% 50 ML VIAL IV PRN (13:56)
[2016-04-27] MEDS: INSULIN GLARGINE, HUMAN 1 UNIT/0.01 ML SQ SCH (21:12)
[2016-04-27] MEDS: traMADol 50 MG TABLET PO PRN (21:19)
[2016-04-27] MEDS: PRAMIPEXOLE 0.25 MG TABLET PO SCH (21:20)
[2016-04-27] MEDS: SERTRALINE 50 MG TABLET PO SCH (21:20)
[2016-04-27] MEDS: traZODone HCL 50 MG TABLET PO PRN (21:21)
[2016-04-28] MEDS: IPRATROPIUM/ALBUTEROL 3 ML AMPUL.NEB NEB SCH ×4 (00:54→18:38)
[2016-04-28] MEDS: PIPERACILLIN SODIUM/TAZOBACTAM 3.375 GM in DEXTROSE 5% IN WATER 50 ML IV SCH ×3 (05:02→21:58)
[2016-04-28] MEDS: methylPREDNISolone SOD SUCC 125 MG/2 ML VIAL IV SCH ×2 (05:03→21:58)
[2016-04-28] MEDS: 0.9 % SODIUM CHLORIDE 10 ML SYRINGE IV SCH ×3 (05:04→21:59)
[2016-04-28 07:20] LABS: Basophils # (Auto) 0 K/mcL (0.0-0.3); Basophils % (Auto) 0 % (0.0-2.0); Eosinophils # (Auto) 0 K/mcL (0.0-0.7); Eosinophils % (Auto) 0 % (0.0-7.0); Granulocytes % (Auto) 89.1 % (38.0-78.0); Lymphocytes # (Auto) 0.8 K/mcL (1.5-4.8); Lymphocytes % (Auto) 8.1 % (15.5-49.0); Mean Cell Volume 93.7 fL (80.0-100.0); Mean Corpuscular HGB Conc 32.1 g/dL (31.0-36.0); Mean Corpuscular Hemoglobin 30.1 pg (26.0-34.0); Monocytes # (Auto) 0.3 K/mcL (0.1-0.9); Monocytes % (Auto) 2.8 % (1.0-9.0); Platelet Count 193 K/mcL (140-440); RBC 5.51 M/mcL (4.00-5.20); Red Cell Distribution Width 14.7 % (11.5-14.5)
[2016-04-28 08:09] LABS: ALT/SGPT 25 U/l (0-40); Albumin 3.5 gm/dL (3.2-5.2); Albumin/Globulin Ratio 1.2 (1.0-2.3); Alkaline Phosphatase 69 U/L (39-117); Bilirubin,Direct < 0.2 mg/dL (0.0-0.3); Blood Urea Nitrogen 28 mg/dl (6-20); Gamma Glutamyl Transpeptidase 22 U/L (5-36); Magnesium 2.1 mg/dL (1.6-2.5); Phosphorous 3.3 mg/dL (2.7-4.5); Uric Acid 3.9 mg/dL (2.5-8.0)
[2016-04-28] MEDS ORDERED: INSULIN GLARGINE, HUMAN 1 UNIT/0.01 ML SQ SCH ×2 (09:00→21:00)
[2016-04-28] MEDS: INSULIN LISPRO 1 UNIT/0.01 ML UNIT SQ SCH ×4 (09:56→22:34)
[2016-04-28] MEDS: CLOPIDOGREL 75 MG TABLET PO SCH (09:56)
[2016-04-28] MEDS: CARVEDILOL 3.125 MG TABLET PO SCH ×2 (09:56→16:53)
[2016-04-28] MEDS: ASPIRIN 81 MG TAB.CHEW CHEWED SCH (09:56)
[2016-04-28] MEDS: BUMETANIDE 1 MG TABLET PO SCH ×2 (09:56→12:03)
[2016-04-28] MEDS: INSULIN GLARGINE, HUMAN 1 UNIT/0.01 ML SQ SCH (09:57)
--- NOTE | 2016-04-28 11:15 | Internal Med Progress Note ---
Medical - PN: Subj Patient information: Note initiated : 04/28/16 at 11:15 am Service Date, if different from initiated Date: [] Patient: Nalini Coto 55 y/o F admitted on 04/22/16 for Cough/SOB, Hypoxia, COPD Exacerbation. Chief Complaint: [] Interval history: 04/28/16:off service note: April 22, 2016:History of present illness: Ms. Coto is a 55 year old female presented to [facility] ER this evening complaining of increasing shortness of breath. ER evaluation there showed that she had a room air O2 saturations in the 70s. She was treated with IV steroids and nebulizer treatments, and has improved somewhat, but still has O2 saturations in the 80s on room air. [facility] felt that she should stay for inpatient treatment, as she was not adequately improved to return home, but they do not have any beds. They called and asked to transfer the patient here. the patient reports that she's had increasing shortness of breath for the last several days. She has felt feverish and chilled. Her has had a cold recently. She also has a headache, mainly over her right eye. She did experience dry heaves this morning. She does have a cough productive of yellowish to clear phlegm. Sore throat, significant eye or ear symptoms. She is not had chest pain although she says her chest may be a little tight with her breathing, but she has been having some aching in her back, which she blames on the coughing. She has had increased wheezing. She has home nebulizedbronchodilators, but they have not been helping. She normally wears2- 3 L of oxygen at night with her CPAP, but does not generally require oxygen during the day. She has had some mild diarrhea lately. Otherwise, she is not had abdominal pain or rectal bleeding or dysuria. 04/28/16: -this patient was admitted with acute on chronic respiratory failure, and addition to her chronicand severe coronary disease and CHF. She normally does not require oxygen while she is awake, but has consistently required oxygen around the clock since she's been here. She has been rather slow to respond to therapy, but is making good progress since yesterday. We had to take her off her CPAP and change her to BiPAP, because she could not maintain her O2 saturations. She was apparently having a lot of sinus congestion and other signs of sinus infection, and the nasal CPAP was not working well. She is now on IV antibiotics for the sinus infection, and was able to tolerate going back on her nasal CPAP last night. She still is quite weak, and tires very quickly. They have been able to get her up to a chair to eat, but she is really not been able to walk much. We are starting to wean her steroids, and continuing with bronchodilators, and now nasal CPAP when asleep. She will be moved from the ICU out to [facility] today. -at baseline, she has been really quite sedentary. She has so much chronic fatigue that sometimes it is just too much effort to even walk from her chair into the kitchen to eat, so she often doesn't eat much during the day. Her works, so she spends a lot of time during the day just sitting in one place. She says her cotton stripper told her almost 10 years ago that there was no point in doing cardiac rehabilitation because she would likely of her heart disease within 5 years. Obviously she has not. She can walk a few steps with her cane at home,but often ends up in a wheelchair and just having her family pushed her around because of her significant fatigue and shortness of breath.she has occasional angina at home, and says she will take a nitroglycerin if it lasts more than 5-10 minutes, and it immediately resolves.the last echocardiogram I see was from December 2014, that showed an AICD placement, and it LVEF of 34% -she says her diabetes is generally well controlled, until she gets put on steroids for her COPD, and then her blood sugars go off the charts. today, she is sitting up in a chair having breakfast when I entered the room. O2 saturations are about 89% n 3 L nasal cannula. She reports some improvementin dyspnea with exertion. She is has less cough. She has not had anymore chest pain. She denies abdominal pain, nausea or vomiting, diarrhea. She did have significant nocturia, which she says is because we are giving her her second dose of diuretics too late in the day. - Constitutional Vitals: Vital Signs Temp Pulse Resp BP Pulse Ox 97.8 F 66 14 137/81 91 04/28/16 04:00 04/28/16 10:21 04/28/16 10:21 04/28/16 06:00 04/28/16 10:21 Period Temp Pulse Resp BP Sys/Rodriguez Pulse Ox Last 24 Hr 97.8 F-97.9 F 57-72 13-22 88-168/57-113 88-96 Intake and Output 04/27/16 04/28/16 04/28/16 21:59 05:59 13:59 Intake Total 830 / 830 700 / 700 360 / 360 Output Total 600 / 600 2000 / 2000 200 / 200 Balance 230 / 230 -1300 / -1300 160 / 160 Weight 236 lb 9.6 oz Intake & Output: Intake & Output 04/27/16 04/28/16 04/28/16 21:59 05:59 13:59 Intake Total 830 / 830 700 / 700 360 / 360 Output Total 600 / 600 2000 / 2000 200 / 200 Balance 230 / 230 -1300 / -1300 160 / 160 Weight 236 lb 9.6 oz Intake: IV 50 / 50 100 / 100 Dextrose 5% in Water 50 50 / 50 100 / 100 ml @ 100 mls/hr IV Q8H MARIAM with Zosyn 3.375 gm Rx#:[id number] Oral 780 / 780 600 / 600 360 / 360 Output: Urine Catheter Amount 275 / 275 Void Amount 325 / 325 1999 / 2000 200 / 200 Other: Meal Dinner Breakfast Percent of Meal Consumed 100% 100% Feeding Ability Independent Assist with Tray Set Up Exam: on exam, she is sitting up in a chair. She's been un for about 2 hours now, and is looking more alert and less fatigued than yesterday. Neck shows no obvious JVD. Cardiac exam shows regular rate and rhythm. Lung exam shows decreased breath sounds throughout, but not much wheezing today. abdomen: Is very obese, but otherwise soft and nontender. Extremities: Show no significant edema. Neurologic: Is grossly nonfocal. Medical - PN: Obj Da - Labs CBC & Chem 7: 04/28/16 04:28 04/28/16 04:28 Labs: Abnormal Lab Results 04/28/16 04/28/16 04/27/16 04:28 04:28 06:34 RBC 5.51 H Hgb 16.6 H 15.7 H Hct 51.7 H 48.9 H RDW 14.7 H 15.1 H Gran % 89.1 H 85.9 H Lymph % (Auto) 8.1 L 9.8 L [place] % (Auto) Gran # 8.9 H Lymph # 0.8 L 0.8 L Chloride 90 L Carbon Dioxide 36 H Anion Gap BUN 28 H Glucose 237 H Calcium 8.4 L Triglycerides 154 H 04/27/16 04/26/16 04/26/16 06:34 04:20 04:20 RBC Hgb Hct RDW 15.1 H Gran % 80.4 H Lymph % (Auto) 10.0 L [place] % (Auto) 9.1 H Gran # Lymph # 0.8 L Chloride 91 L 91 L Carbon Dioxide 41 H* 38 H Anion Gap 7.0 L BUN 25 H 26 H Glucose 188 H 256 H Calcium 8.2 L 7.7 L Triglycerides 179 H April 28: -o2 saturations were 96% last night, on her CPAP and 3 L of O2. aturation is 91 % currently on 3 L via nasal cannula. -intake and output show a total diuresis of almost 9 L since admission April 27: -The patient has diuresed about 8 L of fluid since her arrival.her weight is down about 6 pounds. -accu-Cheks are still running high, ranging from 179-274. April 26: aBG on 1 L O2 via nasal cannula, while awake: PH 7.45, CO2 69, PO2 56, bicarbonate 48, O2 saturation 90% April 24: -02 saturations are ranging from 88-95% on 5 L O2, both with and without CPAP. -sputum culture is growing a Proteus mirabilis, which is pansensitive. -ABG on BiPAP, settings of 15/8, FiO2 35%: Shows pH of 7.41, PCO2 75, PO2 86, bicarbonate 47, 95% saturated -EKG showed sinus rhythm with low voltage, old inferolateral VT. No acute changes. -portable chest x-ray showed cardiomegaly, but no obvious pulmonary edema or infiltrates. April 23: -Chest x-ray showed interval placement of left transvenous pacemaker, elevated right hemidiaphragm, cardiomegaly, prominent -pulmonary vasculature with upper lobe redistribution. No pulmonary infiltrates. april 22, 2016: -d-dimer is mildly elevated at 0.47. troponin is normal at less than 0.01. -BNP is elevated at 2636 -results from [facility] emergency room:Weight is 248 pounds, with a BMI of 48 -Patient has not received a flu shot this year and she cannot recall her last Pneumovax--[facility] record indicates this was given in July 2012.. -CBC shows a white blood cell count of 5000 hemoglobin 15, hematocrit 47, platelets 182,000, absolute granulocyte count is 4000, lymphocyte count is 800 which is low -venous blood gas shows a pH of 7.37, PCO2 of 55, PO2 of 39, bicarbonate of 31 O2 saturation of 67% PO2 of 39 -Chemistry panel shows sodium 138, potassium 3.6, chloride 94, CO2 29 calcium 8.6, albumin 3.9 -LFTs are essentially normal -Lactic acid is normal at 1.5 -Influenza A and B screens are negative -echocardiogram from December 2014: Showed AICD placement, ejection fraction 34% ,. -stents 2 in the LAD,stents 2 in the LAD and obtuse marginal Meds: Medications Acetaminophen (Tylenol) 650 mg PO Q6HP PRN PRN Reason: PAIN/FEVER > 101 Acetaminophen/Hydrocodone Bitart ([place] 7.5/325mg) 1 tab PO Q4HP PRN PRN Reason: Pain Albuterol Sulfate (Ventolin) 2.5 mg NEB Q2HP PRN PRN Reason: Shortness Of Breath Last Admin: 04/24/16 16:50 Dose: 2.5 mg Albuterol/Ipratropium (Duoneb) 3 ml NEB Q6HRT PENDING SALE TO [facility] Last Admin: 04/28/16 07:42 Dose: 3 ml Aspirin (Aspirin) 81 mg CHEWED DAILY PENDING SALE TO [facility] Last Admin: 04/28/16 09:56 Dose: 81 mg Bumetanide (Bumex) 2 mg PO BIDD PENDING SALE TO [facility] Calcium Carbonate/Glycine (Tums) 1,000 mg CHEWED Q4HP PRN PRN Reason: Dyspepsia Carvedilol (Coreg) 3.125 mg PO BIDCC PENDING SALE TO [facility] Last Admin: 04/28/16 09:56 Dose: 3.125 mg Clopidogrel Bisulfate (Plavix) 75 mg PO DAILY PEND[facility] S[facility] Last Admin: 04/28/16 09:56 Dose: 75 mg Dextrose (Dextrose 50%) 0 ml IV UD PRN PRN Reason: Hypoglycemia Diagnostic Test (Pha) (Accu-Chek) 1 each FS ACHS PENDING SALE TO [facility] Last Admin: 04/28/16 09:59 Dose: 1 each Docusate Sodium (Colace) 100 mg PO BID PRN PRN Reason: Constipation Piperacillin Sod/Tazobactam (Sod 3.375 gm/ Dextrose) 50 mls @ 100 mls/hr IV Q8H PEND[facility] SALE [facility] Last Infusion: 04/28/16 05:39 Dose: Infused Insulin Glargine (Lantus) 50 unit SQ HS [facility] Last Admin: 04/28/16 09:57 Dose: 10 unit Insulin Glargine (Lantus) 10 unit SQ QAM [facility] Last Admin: 04/28/16 09:58 Dose: 10 unit Insulin Human Lispro (Humalog) 0 unit SQ ACHS PEND[facility] S[facility] PRN Reason: Protocol Last Admin: 04/28/16 09:56 Dose: 6 unit Magnesium Hydroxide (Milk Of Magnesia) 30 ml PO DAILYP PRN PRN Reason: Constipation Methocarbamol (Robaxin) 750 mg PO Q6HP PRN PRN Reason: Muscle Pain Methylprednisolone Sodium Succinate (Solu-Medrol) 80 mg IV Q8 [facility] Last Admin: 04/28/16 05:03 Dose: 80 mg Nitroglycerin (Nitrostat) 0.4 mg SL Q5M PRN PRN Reason: Chest Pain Ondansetron HCl (Zofran Odt) 4 mg SL Q6HP PRN PRN Reason: Nausea And Vomiting Ondansetron HCl (Zofran) 4 mg IV Q4-6HP PRN PRN Reason: Nausea And Vomiting Last Admin: 04/25/16 16:43 Dose: 4 mg Pramipexole Dihydrochloride (Mirapex) 1 mg PO [facility] Last Admin: 04/27/16 21:20 Dose: 1 mg Sertraline HCl (Zoloft) 200 mg PO [facility] Last Admin: 04/27/16 21:20 Dose: 200 mg Sodium Chloride (Saline Flush) 10 ml IV Q8 [facility] Last Admin: 04/28/16 05:04 Dose: 10 ml Tramadol HCl (Ultram) 50 mg PO BIDP PRN PRN Reason: Pain Last Admin: 04/27/16 21:19 Dose: 50 mg Trazodone HCl (Desyrel) 50 mg PO HSP PRN PRN Reason: Insomnia Last Admin: 04/27/16 21:21 Dose: 50 mg Medical - PN: A/P - Time Spent With Patient Total time spent is greater than 50% in coordination of care (as documented) at patient's floor/unit and/or counseling patient: - Narrative A/P Narrative: #1. Pulmonary. this patient presents with hypoxia, and apparent COPD exacerbation, likely due to a superimposed viral infection.. She was admitted for aggressive management with nebulized bronchodilators, IV steroids, oxygen and pulmonary toilet. There is no current sign of pneumonia (the ER M.D. he reported a negative chest x-ray). -she had great difficulty using her nasal CPAP, due to apparent sinus infection with sinus congestion.she did much better once she was switched over to BiPAP, but is still requiring supplemental oxygen while awake. She is looking improved enough, that she can be moved out of ICU today, over to MedSurg. She will use her CPAP whenever she sleeps. I will start weaning her steroids. -continue IV Zosyn for her sinus infection. This can probably be switched over to oral Augmentin at discharge. ontinue nasal saline often, to help keep her sinus passages clear. #2. Type 2 diabetes. - Continue Lantus and Humalog sliding scale, and Accu-Cheks. glucose is running a bit high, likely related to acute illness and steroids. -increase her Lantus as well as her sliding scale. #3. Cardiac. reported history of previous VT, and numerous stents.. -she was given Lasix for a component of pulmonary vascular congestion. She did diurese quite a bit. -Continue Plavix, aspirin, when necessary nitroglycerin. -Continue Aldactone, when necessary nitroglycerin, Coreg, and Bumex.. -patient has a pacemaker/defibrillator in place. Report from Dr. Self's office from October 2015 did show nonsustained V. tach of about 9 seconds back in May. EKG showed old inferior and anterolateral VT. -(disposition)-it sounds like the patient is functionally quite disabled from the combination of her heart and lung disease. i spent some time encouraging her to work with physical therapy to get on a regular exercise program. She absolutely needs to move around more, so that she can get stronger, so that she can build up her tolerance for activity that stresses both her heart and her lungs. I do think a walker with a seat would help accomplish this, she could start walking more confidently, knowing that she could stop and rest whenever she needs to. -it sounds like she is going to decline rehabilitation after discharge, so she will need to be sent home with home health physical therapy. I have strongly encouraged she and her to very very gradually start increasing her physical activity level, and to avoid using the wheelchair, but rather use her walker with a seat, and sit down whenever she gets tired. I do think there is some value in pushing herself a little bit, to see if we can improve her exercise tolerance. Certainly strengthening would help with decreasing her fall risk Social work also look into if she is eligible for any caregiver hours during the day, so that she does not have to sit in a chair all day and not have access to food and liquids. it sounds like her daughter mae be able to help with this. #4. CODE STATUS:full code. #5. DVT prophylaxis: continue Plavix and aspirin, add SCDs. #6.sleep apnea. continue cPAP with supplemental oxygen as needed. #7. History of depression. -Continue trazodone, Zoloft. #8. Chronic pain. Continue when necessary tramadol and [place].and when necessary methocarbamol. #9. Restless leg syndrome. Continue Mirapex. #10. B12 deficiency. Continue monthly B12 injections. #11. Hematologic. Patient also is lymphopenic.absolute lymphocyte count was 1500 last November, and has been declining steadily since then. this has been stable at 800 over the last several days. 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 the patient reports that she has been having intermittent vaginal bleeding. This may be consistent with her being perimenopausal, but she is unclear on if she is. I strongly encouraged she and her to seek [employer] INSTRUMENT SPECIALIST follow-up for this after discharge from the hospital. So far today, this visit today has taken approximately 30 minutes, to interview and examine the patient, review test results, , and write orders. Medical - PN: Qual - Stroke Symptom Onset Unknown: No - VTE Deep Vein Thrombosis/Pulmonary Embolism Present on Admission: No
[2016-04-28] MEDS ORDERED: CALCIUM CARBONATE 500 MG TAB.CHEW CHEWED PRN (11:22)
[2016-04-28] MEDS ORDERED: ALBUTEROL SULFATE 2.5 MG/3 ML NEBULIZER NEB PRN (11:22)
[2016-04-28] MEDS ORDERED: ONDANSETRON 4 MG/2 ML VIAL IV PRN (11:22)
[2016-04-28] MEDS ORDERED: DOCUSATE SODIUM 100 MG CAPSULE PO PRN (11:22)
[2016-04-28] MEDS ORDERED: METHOCARBAMOL 750 MG TABLET PO PRN (11:22)
[2016-04-28] MEDS ORDERED: ACETAMINOPHEN 325 MG TABLET PO PRN (11:22)
[2016-04-28] MEDS ORDERED: DEXTROSE 50% 50 ML VIAL IV PRN (11:22)
[2016-04-28] MEDS ORDERED: HYDROCODONE/APAP 7.5/325MG TABLET PO PRN (11:22)
[2016-04-28] MEDS ORDERED: traMADol 50 MG TABLET PO PRN (11:22)
[2016-04-28] MEDS ORDERED: MAGNESIUM HYDROXIDE 30 ML ORAL.SUSP PO PRN (11:22)
[2016-04-28] MEDS ORDERED: NITROGLYCERIN 0.4 MG TAB.SUBL SL PRN (11:22)
[2016-04-28] MEDS ORDERED: ONDANSETRON ODT 4 MG TABLET SL PRN (11:22)
[2016-04-28] MEDS ORDERED: BUMETANIDE 1 MG TABLET PO SCH (16:00)
[2016-04-28] MEDS ORDERED: traZODone HCL 50 MG TABLET PO PRN (21:00)
[2016-04-28] MEDS ORDERED: SERTRALINE 50 MG TABLET PO SCH (21:00)
[2016-04-28] MEDS ORDERED: PRAMIPEXOLE 0.25 MG TABLET PO SCH (21:00)
[2016-04-29] MEDS: IPRATROPIUM/ALBUTEROL 3 ML AMPUL.NEB NEB SCH ×3 (00:56→13:20)
[2016-04-29] MEDS: PIPERACILLIN SODIUM/TAZOBACTAM 3.375 GM in DEXTROSE 5% IN WATER 50 ML IV SCH ×2 (05:38→14:05)
[2016-04-29] MEDS: 0.9 % SODIUM CHLORIDE 10 ML SYRINGE IV SCH ×2 (05:38→16:34)
[2016-04-29] MEDS: BUMETANIDE 1 MG TABLET PO SCH ×2 (05:38→16:34)
[2016-04-29 06:35] LABS: Basophils # (Auto) 0 K/mcL (0.0-0.3); Basophils % (Auto) 0.1 % (0.0-2.0); Eosinophils # (Auto) 0 K/mcL (0.0-0.7); Eosinophils % (Auto) 0 % (0.0-7.0); Granulocytes % (Auto) 87.9 % (38.0-78.0); Lymphocytes # (Auto) 0.9 K/mcL (1.5-4.8); Lymphocytes % (Auto) 8.2 % (15.5-49.0); Mean Cell Volume 94.1 fL (80.0-100.0); Mean Corpuscular HGB Conc 32.1 g/dL (31.0-36.0); Mean Corpuscular Hemoglobin 30.2 pg (26.0-34.0); Monocytes # (Auto) 0.4 K/mcL (0.1-0.9); Monocytes % (Auto) 3.8 % (1.0-9.0); Platelet Count 225 K/mcL (140-440); RBC 5.82 M/mcL (4.00-5.20); Red Cell Distribution Width 14.8 % (11.5-14.5)
[2016-04-29 07:18] LABS: ALT/SGPT 25 U/l (0-40); Albumin 3.4 gm/dL (3.2-5.2); Alkaline Phosphatase 68 U/L (39-117); Bilirubin,Direct < 0.2 mg/dL (0.0-0.3); Blood Urea Nitrogen 31 mg/dl (6-20); Gamma Glutamyl Transpeptidase 33 U/L (5-36); Magnesium 2.2 mg/dL (1.6-2.5); Phosphorous 4.4 mg/dL (2.7-4.5); Uric Acid 4.7 mg/dL (2.5-8.0)
[2016-04-29] MEDS: CARVEDILOL 3.125 MG TABLET PO SCH (08:01)
[2016-04-29] MEDS: INSULIN LISPRO 1 UNIT/0.01 ML UNIT SQ SCH ×2 (08:05→11:43)
[2016-04-29] MEDS ORDERED: CLOPIDOGREL 75 MG TABLET PO SCH (09:00)
[2016-04-29] MEDS ORDERED: INSULIN GLARGINE, HUMAN 1 UNIT/0.01 ML SQ SCH (09:00)
[2016-04-29] MEDS ORDERED: ASPIRIN 81 MG TAB.CHEW CHEWED SCH (09:00)
[2016-04-29] MEDS: methylPREDNISolone SOD SUCC 125 MG/2 ML VIAL IV SCH (09:33)
--- NOTE | 2016-04-29 12:48 | Discharge Summary ---
Medical - DS: Prov Patient information: Note initiated : 04/29/16 at 12:44 pm Service Date, if different from initiated Date: [] Patient: Nalini Coto 55 y/o F admitted on 04/22/16 for Cough/SOB, Hypoxia, COPD Exacerbation. Chief Complaint: [] Date of admission: 04/22/16 21:40 Discharge date: 04/29/16 Primary care physician: [f_Reg Prim Care Provider] Medical - DS: Meds - Discharge Medications Prescriptions: Amoxicillin/Potassium Clav [Augmentin] 875 mg PO Q12H #10 tablet predniSONE [Deltasone] 40 mg PO DAILY #10 tablet Active and Home Medications: Home Medications Amoxicillin/Potassium Clav [Augmentin] 875 mg PO Q12H #10 tablet 04/29/16 [Rx Last Taken Unknown] predniSONE [Deltasone] 40 mg PO DAILY #10 tablet 04/29/16 [Rx Last Taken Unknown ] Active Medications Acetaminophen (Tylenol) 650 mg PO Q6HP PRN PRN Reason: PAIN/FEVER > 101 Acetaminophen/Hydrocodone Bitart (Hooper 7.5/325mg) 1 tab PO Q4HP PRN PRN Reason: Pain Albuterol Sulfate (Ventolin) 2.5 mg NEB Q2HP PRN PRN Reason: Shortness Of Breath Albuterol/Ipratropium (Duoneb) 3 ml NEB Q6HRT [facility] Last Admin: 04/29/16 07:09 Dose: 3 ml Aspirin (Aspirin) 81 mg CHEWED DAILY [facility] Last Admin: 04/29/16 09:32 Dose: 81 mg Bumetanide (Bumex) 2 mg PO BID@0600,1300 [facility] Last Admin: 04/29/16 05:38 Dose: 2 mg Calcium Carbonate/Glycine (Tums) 1,000 mg CHEWED Q4HP PRN PRN Reason: Dyspepsia Carvedilol (Coreg) 3.125 mg PO BIDCC [facility] Last Admin: 04/29/16 08:01 Dose: 3.125 mg Clopidogrel Bisulfate (Plavix) 75 mg PO DAILY [facility] Last Admin: 04/29/16 09:32 Dose: 75 mg Dextrose (Dextrose 50%) 0 ml IV UD PRN PRN Reason: Hypoglycemia Diagnostic Test (Pha) (Accu-Chek) 1 each FS ACHS [facility] Last Admin: 04/29/16 11:36 Dose: 1 each Docusate Sodium (Colace) 100 mg PO BID PRN PRN Reason: Constipation Last Admin: 04/28/16 19:39 Dose: 100 mg Piperacillin Sod/Tazobactam (Sod 3.375 gm/ Dextrose) 50 mls @ 100 mls/hr IV Q8 [facility] Last Admin: 04/29/16 05:38 Dose: 100 mls/hr Insulin Glargine (Lantus) 50 unit SQ HS [facility] Last Admin: 04/28/16 22:34 Dose: 50 unit Insulin Glargine (Lantus) 10 unit SQ QAM [facility] Last Admin: 04/29/16 09:42 Dose: 10 unit Insulin Human Lispro (Humalog) 0 unit SQ ACHS [facility] PRN Reason: Protocol Last Admin: 04/29/16 11:43 Dose: 9 unit Magnesium Hydroxide (Milk Of Magnesia) 30 ml PO DAILYP PRN PRN Reason: Constipation Methocarbamol (Robaxin) 750 mg PO Q6HP PRN PRN Reason: Muscle Pain Methylprednisolone Sodium Succinate (Solu-Medrol) 80 mg IV Q12 [facility] Last Admin: 04/29/16 09:33 Dose: 80 mg Nitroglycerin (Nitrostat) 0.4 mg SL Q5M PRN PRN Reason: Chest Pain Ondansetron HCl (Zofran) 4 mg IV Q4-6HP PRN PRN Reason: Nausea And Vomiting Ondansetron HCl (Zofran Odt) 4 mg SL Q6HP PRN PRN Reason: Nausea And Vomiting Pramipexole Dihydrochloride (Mirapex) 1 mg PO [facility] Last Admin: 04/28/16 21:59 Dose: 1 mg Sertraline HCl (Zoloft) 200 mg PO [facility] Last Admin: 04/28/16 21:59 Dose: 200 mg Sodium Chloride (Saline Flush) 10 ml IV Q8 [facility] Last Admin: 04/29/16 05:38 Dose: 10 ml Tramadol HCl (Ultram) 50 mg PO BIDP PRN PRN Reason: Pain Trazodone HCl (Desyrel) 50 mg PO HSP PRN PRN Reason: Insomnia Last Admin: 04/28/16 22:05 Dose: 50 mg Medical - DS: Hosp Hospital course: DISCHARGE DIAGNOSIS * Acute Decompensated heart failure status post aggressive diuresis over 6000 cc. on Coreg/Plavix/aspirin and Bumex * COPD exacerbation- managed on steroids/bronchodilators. Clinically improved * Likely aspiration pneumonia with Proteus mirabilis on sputum cultures- clinically resolved. continue antibiotics based on cultures for additional 5 days * Ischemic cardiomyopathy with EF 35% on defibrillator. Continue on medications as above * Parkinson's disease on pramipexole * Anxiety disorder on sertraline/trazodone * history of COPD with CO2 retention. Continue home oxygen along with home noninvasive ventilation. * DM type II on basal prandial insulin BRIEF HOSPITAL COURSE April 22, 2016:History of present illness: Ms. Coto is a 55 year old female presented to [facility] ER this evening complaining of increasing shortness of breath. ER evaluation there showed that she had a room air O2 saturations in the 70s. She was treated withIV steroids and nebulizer treatments, and has improved somewhat, but still has O2 saturations in the 80s on room air. [facility] felt that she should stay for inpatient treatment, as she was not adequately improved to return home, but they do not have any beds. They called and asked to transfer the patient here. the patient reports that she's had increasing shortness of breath for the last several days. She has felt feverish and chilled. Her has had a cold recently. She also has a headache, mainly over her right eye. She did experience dry heaves this morning. She does have a cough productive of yellowish to clear phlegm. Sore throat, significant eye or ear symptoms. She is not had chest pain although she says her chest may be a little tight with her breathing, but she has been having some aching in her back, which she blames on the coughing. She has had increased wheezing. She has home nebulizedbronchodilators, but they have not been helping. She normally wears2- 3 L of oxygen at night with her CPAP, but does not generally require oxygen during the day. She has had some mild diarrhea lately. Otherwise, she is not had abdominal pain or rectal bleeding or dysuria. april 23, 2016: Today, the patientnotes she is still having a fair amount of wheezing and shortness of breath, but think she is much improved since last night. he is not noticing subjective fever or chills this morning. She is still having some nausea, but no vomiting. she otherwise denies current headache sore throat She does continue to have a cough which is mostly nonproductive. She denies abdominal pain or diarrhea or dysuria. her did bring in her nasal CPAP last night, so she still has that on. O2 saturation at 4 this morning was 88%on 5 L O2 via nasal cannula, and went up to 90% on 5 L with her nasal CPAP April 24, 2016: today, the patient says she is not feeling that great. She and her know that if she gets out of bed and walks around all she desaturates. Normally at home she stays above 90% on room air during the daybut is desaturating even on 2 and 3 L of oxygen here. She says she just feels poorly, although her main complaints are that she has a pain above her right eye and some dizziness She is not experiencing fever or chills or significant cough She continues to feel moderately short of breath, but is not having as much wheezing. She denies chest pain or palpitations, abdominal pain , vomiting or diarrhea. She does continue to have some intermittent nausea. She denies dysuria. addendum: this evening, the patient became progressively more dyspneic, and her O2 saturations started to drop down into the 60s. Her FiO2 was increased, and this helped temporarily. The patient was complaining mainly of sinus congestion and nasal congestion as well as pain above her right eye. She was continuing to try to use the nasal CPAP, but was doing a lot of mouth breathing. I ultimately decided to move her to the intensive care unit for further monitoring. Since we were concerned about the possibility of congestive heart failure earlier today, she was given IV Lasix, with a good response to that. ABG indicated continued CO2 retention and hypoxemia Because of her sinus issues , we stopped her nasal CPAP, and switch her over to BiPAP. Since then, she has been doing quite well. Her O2 requirements have dropped dramatically, and she has appeared to be quite a bit more comfortable. because of a likely sinus infection, I will add antibiotics as well. April 25, 2016:: today, the patient is much more comfortable, although she did not sleep well last night. She complains of significant fatigue. She is finding it easier to breathe with the BiPAP mask, then using her nasal CPAP, due to her sinus congestion. she was awake earlier, and able to take off the masks to eat, but now has the mask back on, and is sleeping soundly. her is with her, and says overall he thinks she feels a little better today. She is not complaining of chest pain, and feels that the mask actually helps her breathe better than when it is not on. April 26:the patient apparently had somewhat of a restless night. The nurses tell me that she was awake for about 2 hours this morning, and did well off the BiPAP. She was able to eat breakfast, and seemed to feel pretty well, but then said she was just exhausted, and went back to sleep. she has been maintaining her O2 saturation pretty well while awake today, on O2 via nasal cannula. When she reported her back on the BiPAP as her sinus tenderness still does not allow her to tolerate her nasal CPAP very well.she still feels very weak and very tired. -her nurse tells me that she has been having some intermittent vaginal bleeding , which the patient says is not all that uncommon for her she is not really sure if she has gone through menopause yet. She has not seen a doctor about her irregular vaginal bleeding.Otherwise she denies subjective fever or chills, chest pain or palpitations. She continues to have moderate dyspnea with minimal exertion, and continued wheezing. She denies abdominal pain, nausea or vomiting, diarrhea or dysuria. she had a Cavanaugh catheter placed when she was moved to the ICU. The plan is to remove that once she is able toget up to the bedside commode easily. April 27: his morning, the patient was placed back on oxygen by nasal cannula , and did sit up for breakfast. She still feels terribly weak, but is probably a little better than yesterday. Nursing staff feels that she is able now to get out of bedto use the bedside commode, so we will discontinue her Cavanaugh. Today, I had a discussion with the patient and her . Apparently sometimes the patient will just sit in her chair all day at home, not getting up to use the bathroom or eat anything, because she just feels too weak. She notes she does occasionally have chest pressure at home, and if it lasts more than 10 minutes, she will take a sublingual nitroglycerin, which relieves the pressure. She has been having occasional lower sternal pressure here, but says it does not feel like her normal angina. She does have some occasional nausea here, and the Zofran does help. She says she would like to tryhaving that at home as well. She often will take Pepto-Bismol at home if she has nausea. at home, she does not use oxygen while awake, so her goal is to get back to that state. However she is still extraordinarily weak, and will likely require some physical therapy to try to get her stronger. I did have a long discussion with she and her about aking sure she is moving around as much as she can tolerate. We discussed that the more she moves the stronger she will get, and that will help with her breathing as well. Also building up some muscle mass will help her get rid of some of her body fat, which would then make moving around easier as well. I do think physical therapy should evaluate her for a walker with a seat, so that she will stop using a wheelchair as much to get from place to place. Otherwise, she denies subjective fever or chills, palpitations, abdominal pain, vomiting or diarrhea Only catheter still in place. 04/28/16: -this patient was admitted with acute on chronic respiratory failure, and addition to her chronicand severe coronary disease and CHF. She normally does not require oxygen while she is awake, but has consistently required oxygen around the clock since she's been here. She has been rather slow to respond to therapy, but is making good progress since yesterday. We had to take her off her CPAP and change her to BiPAP, because she could not maintain her O2 saturations. She was apparently having a lot of sinus congestion and other signs of sinus infection, and the nasal CPAP was not working well. She is now on IV antibiotics for the sinus infection, and was able to tolerate going back on her nasal CPAP last night. She still is quite weak, and tires very quickly. They have been able to get her up to a chair to eat, but she is really not been able to walk much. We are starting to wean her steroids, and continuing with bronchodilators, and now nasal CPAP when asleep. She will be moved from the ICU out to [facility] today. -at baseline, she has been really quite sedentary. She has so much chronic fatigue that sometimes it is just too much effort to even walk from her chair into the kitchen to eat, so she often doesn't eat much during the day. Her works, so she spends a lot of time during the day just sitting in one place. She says her tile and marble installer told her almost 10 years ago that there was no point in doing cardiac rehabilitation because she would likely of her heart disease within 5 years. Obviously she has not. She can walk a few steps with her cane at home,but often ends up in a wheelchair and just having her family pushed her around because of her significant fatigue and shortness of breath.she has occasional angina at home, and says she will take a nitroglycerin if it lasts more than 5-10 minutes, and it immediately resolves.the last echocardiogram I see was from December 2014, that showed an AICD placement, and it LVEF of 34% -she says her diabetes is generally well controlled, until she gets put on steroids for her COPD, and then her blood sugars go off the charts. today, she is sitting up in a chair having breakfast when I entered the room. O2 saturations are about 89% n 3 L nasal cannula. She reports some improvementin dyspnea with exertion. She is has less cough. She has not had anymore chest pain. She denies abdominal pain, nausea or vomiting, diarrhea. She did have significant nocturia, which she says is because we are giving her her second dose of diuretics too late in the day. 04/29- patient requesting discharge. Feels a lot better. on 3 L oxygen.No overnight events or concerns per nursing staff. Ongoing diuresis. antibiotics de-escalate it to Augmentin. Steroids De escalated to prednisone. Detailed discharge instructions as below. patient agreed follow-up with cardiology as an outpatient. refusing SNF transfer or home health espite efforts to arrange the same as an outpatient. at bedside and agrees patient's. Discharge diagnosis: COPD exacerbation - Time Spent with Patient Total time spent providing and/or coordinating discharge services: Greater than 30 minutes Medical - DS: Exam - Constitutional Vitals: Vital Signs Temp Pulse Pulse Resp BP BP Pulse Ox 04/29/16 11:28 97.8 F 70 20 132/74 90 04/29/16 07:58 96.1 F L 62 16 125/73 93 04/29/16 07:42 93 04/29/16 07:11 72 18 90 04/29/16 04:00 98.1 F 65 20 150/87 93 04/28/16 23:00 97.6 F 67 20 98/56 92 04/28/16 19:49 97.9 F 67 18 118/64 99 04/28/16 18:39 60 21 90 04/28/16 15:49 96.6 F L 66 20 108/69 90 04/28/16 13:50 63 16 92 Intake and Output 04/28/16 04/29/16 04/29/16 21:59 05:59 13:59 Intake Total 690 / 690 290 / 290 680 / 680 Output Total 1350 / 1350 430 / 430 Balance -660 / -660 290 / 290 250 / 250 Intake: IV 50 / 50 50 / 50 Dextrose 5% in Water 50 50 / 50 50 / 50 ml @ 100 mls/hr IV Q8 MARIAM with Zosyn 3.375 gm Rx#: [id number] Oral 640 / 640 240 / 240 680 / 680 Output: Void Amount 1350 / 1350 430 / 430 Other: Meal Lunch Breakfast Percent of Meal Consumed 100% 100% Feeding Ability Independent Independent # Voids 1 # Bowel Movements 1 1 Weight 237 lb General appearance: moderate distress, obese Additional comments: improved SOB, nonlabored breathing Abdomen soft Lymphedema improved No anxiety Medical - DS: Data Labs on day of discharge: Labs from last 24 hours 04/29/16 04/29/16 05:15 05:15 WBC 10.8 RBC 5.82 H Hgb 17.6 H Hct 54.8 H MCV 94.1 MCH 30.2 MCHC 32.1 RDW 14.8 H Plt Count 225 MPV 9.5 Gran % 87.9 H Lymph % (Auto) 8.2 L Bradford % (Auto) 3.8 Eos % (Auto) 0 Baso % (Auto) 0.1 Gran # 9.5 H Lymph # 0.9 L Bradford # 0.4 Eos # 0 Baso # 0 Sodium 137 Potassium 4.0 Chloride 91 L Carbon Dioxide 33 H Anion Gap 13.0 BUN 31 H Creatinine 0.9 GFR Calculation 71 Glucose 206 H Uric Acid 4.7 Calcium 8.8 Phosphorus 4.4 Magnesium 2.2 Total Bilirubin 0.6 Direct Bilirubin < 0.2 GGT 33 AST 17 ALT 25 Alkaline Phosphatase 68 Lactate Dehydrogenase 210 Total Protein 6.7 Albumin 3.4 Globulin 3.3 Albumin/Globulin Ratio 1.0 Triglycerides 144 Medical - DS: A/P - Patient/Caregiver Discharge Instructions Activity: as per physical therapy Diet: Consistent Carbohydrate, Renal/Consistent Carbs Additional Instructions: Walker with seat to enable rest periods for dyspnea home oxygen/noninvasive ventilation/BiPAP Follow-up PCP in 5 days Follow-up cardiology next available appointment I recommend primary care physician to check CBC BMP UA as a posthospital follow- up and Chest x-ray in 1 week. Antibiotics for additional 5 days of Augmentin oxygen @ 2-3 L to keep sats around 88% Continue aggressive bowel regimen to prevent constipation Continue fall precautions daily weights measurements and take additional dose of Bumex for 3 days if weight gain over 4 pounds at baseline or worsening shortness of breath and call primary care physician if inadequate response to Lasix I recommend PT OT with home health All meals on chair sitting upright at 90 degrees to prevent aspiration Return to ER if worsening fever chills shortness of breath, diarrhea, bleeding Review risk and side effect profile of medications including antibiotics. Side effect may include mild to severe reaction including rash, diarrhea, cdiff and even which can be prevented by close follow-up with PCP Refrain from smoking and alcohol Continue diet and activity as advised Discussed importance of medication adherence Please review medication list with patient prior to discharge Please schedule follow-up with PCP/Providers prior to discharge and provide printouts Portions of this chart may have been created with [employer] voice recognition software. Occasional wrong-word or ?sound-like? substitutions may have occurred due to the inherent limitations of voice recognition software. Please read the chart carefully and recognize, using context, where the substitutions have occurred. CC- PCP Prescriptions: Amoxicillin/Potassium Clav [Augmentin] 875 mg PO Q12H #10 tablet predniSONE [Deltasone] 40 mg PO DAILY #10 tablet Other Amb Orders: Walker Location: Determined By Patient - Follow up Plan Follow up with: Arlene Cazares MD [Primary Care Provider] - 05/13/16 11:45 am Disposition: Home Health Service Prognosis: Undetermined Rehab Potential: Undetermined I certify that the patient requires SNF services: Yes (patient refused) Overall status at discharge: patient is progressing back to baseline Medical - DS: Qual - VTE Deep Vein Thrombosis/Pulmonary Embolism Present on Admission: No
[2016-04-29] MEDS ORDERED: PNEUMOCOCCAL 23-VAL P-SAC VAC 0.5 ML VIAL IM ONE (14:45)
[2016-04-29] MEDS ORDERED: FLU VACC QS2016-17 36MOS UP/PF 60 MCG/0.5 ML SYRINGE IM ONE (14:45)
== END 2016-04-29 15:55 | disposition home health service (06) | DRG 291 ==
LOC: MEDSUR 21:40 → ICU 04-24 18:12 → MEDSUR 04-28 11:39
PROVIDERS: ADMIT Internal Medicine; ATTEND Internal Medicine